=== PATIENT | female | born 1990 | race Caucasian/White ===

== ENCOUNTER 2022-05-15 10:27 | Emergency (ER) | payer BC, SELFPAY ==
--- NOTE | 2022-05-15 10:31 | ED.URI ---
HPI - URI/Sore Throat General Chief Complaint: Upper Respiratory Infection Stated Complaint: Poss Strep Throat Time Seen by Provider: 05/15/22 10:36 Source: patient, RN notes reviewed and old records reviewed Mode of arrival: ambulatory Limitations: no limitations History of Present Illness HPI Narrative: 32-year-old female presents to the [facility] with complaints a sore throat that feels swollen since Sunday, 2 days. Has taken cold and flu medicine as well as ibuprofen. Patient unsure of fevers, does not own a thermometer Denies any congestion, ear pain, coughing, chest pain or pain Onset (ago): day(s) (2) Related Data Home Medications Medication Instructions Recorded Confirmed famotidine 20 mg tablet 20 mg PO DAILY 02/02/20 05/15/22 fluoxetine 20 mg capsule 20 mg PO DAILY 02/02/20 05/15/22 Allergies Allergy/AdvReac Type Severity Reaction Status Date / Time hydrocodone AdvReac Unknown Vomiting Unverified 05/15/22 10:40 Review of Systems Review of Systems: All systems reviewed & are unremarkable except as noted in HPI and below Constitutional: Constitutional: Reports no additional constitutional complaints Eyes: Eyes: Reports no additional eye complaints ENT: Reports as per HPI and Reports sore throat Cardiovascular: Cardiovascular: Reports no additional cardiovascular complaints, Denies chest pain and Denies dyspnea Respiratory: Respiratory: Reports no additional respiratory complaints, Denies chest congestion, Denies cough and Denies dyspnea Gastrointestinal: Gastrointestinal: Reports no additional gastrointestinal complaints, Denies abdominal pain, Denies nausea and Denies vomiting Musculoskeletal: Musculoskeletal: Reports no additional musculoskeletal complaints Integumentary/Breasts: Skin/Breast: Reports system reviewed and no additional complaints, except as docu Neurologic: Reports system reviewed and no additional complaints, except as documented Psychiatric: Psychiatric: Reports no additional psychiatric complaints Allergic/Immunologic: Allergic/Immunologic: Reports no additional allergic/immunologic complaints PMFSH Past Medical History Medical History Acid reflux Anxiety Surgical History Surgical History History of back surgery History of bilateral breast reduction surgery History of delivery History of cholecystectomy Family History Family History Other Hypertension Social History Social History Smoking status: Never smoker Alcohol intake: current Comments At the time of my signature, I reviewed and agree with the nursing past medical, surgical, social, and family history. There is no relevant family history pertinent to the patient complaint. Exam Const: General: cooperative, healthy appearing, comfortable, no acute distress, well developed, alert and well nourished Nutritional Appearance: well nourished Orientation/consciousness: patient oriented x3 Limitations: no limitations HENMT: Head: normal to inspection Ears: hearing grossly normal bilaterally, external ears normal, TM's normal bilaterally and EAC's normal Face/Nose/Sinus: Normal external nose present, Normal nares present, Normal nasal mucous membranes and turbinates present and normal facial exam Face and sinus: normal facial exam Mouth: Yes Normal oral and palatal mucosa present, Yes lip normal and Yes moist mucous membranes Throat: posterior oropharynx normal and uvula midline Eyes: General: appearance normal, both eyes and all related structures Alignment and Position: alignment normal Periorbital: periorbital findings normal Conjunctivae: conjunctivae normal Pupils: Equal, round and reactive pupils present EOM: EOMs intact bilaterally Neck: Neck: normal visual inspection, f
[2022-05-15 10:34] VITALS: BP 126/85; PULSE 88; RESP 16; TEMP 36.4; O2SAT 99
== END 2022-05-15 10:56 | disposition home or self-care (01) ==
PROVIDERS: Emergency Provider Nurse Practitioner; PCP Registered Nurse
DX: J02.0 Streptococcal pharyngitis (principal); K21.9 Gastro-esophageal reflux disease without esophagitis; F41.9 Anxiety disorder, unspecified
CPT/HCPCS: 87880; 99213; G0463

== ENCOUNTER 2022-12-07 09:06 | Emergency (ER) | payer BC, SELFPAY ==
--- NOTE | 2022-12-07 09:11 | ED.URI ---
HPI - URI/Sore Throat General Chief Complaint: Upper Respiratory Infection Stated Complaint: Sore Throat Time Seen by Provider: 12/07/22 09:29 Source: patient Mode of arrival: ambulatory Limitations: no limitations History of Present Illness HPI Narrative: Patient is a 32-year-old female who presents with sore throat since yesterday. Patient states her sore throat has not improved. Was at a concert on Sunday and thought it was just due to screaming. Daughter tested positive for strep throat today. Denies any fever, chills, nausea, vomiting, diarrhea, congestion, ear pain, headache. Has not taken anything for symptoms Related Data Home Medications Medication Instructions Recorded Confirmed fluoxetine 20 mg capsule 20 mg PO DAILY 02/02/20 12/07/22 omeprazole 20 mg capsule,delayed 20 mg DIRECTED 12/07/22 12/07/22 release Allergies Allergy/AdvReac Type Severity Reaction Status Date / Time hydrocodone AdvReac Unknown Vomiting Unverified 05/15/22 10:40 Review of Systems Review of Systems: All systems reviewed & are unremarkable except as noted in HPI and below Constitutional: Constitutional: Denies body ache(s), Denies fever(s), Denies headache(s), Denies malaise and Denies weakness Eyes: Eyes: Denies loss of vision ENT: Denies otalgia, Denies headache(s), Denies nasal congestion, Denies sinus pain and Reports sore throat Cardiovascular: Cardiovascular: Denies chest pain, Denies irregular heart rhythm and Denies dyspnea Respiratory: Respiratory: Denies cough and Denies dyspnea Gastrointestinal: Gastrointestinal: Denies abdominal pain, Denies melena, Denies hematochezia, Denies diarrhea, Denies nausea and Denies vomiting Musculoskeletal: Musculoskeletal: Denies back pain, Denies myalgias and Denies arthralgias Integumentary/Breasts: Skin/Breast: Denies pruritus and Denies rash Neurologic: Denies headache(s), Denies loss of vision and Denies weakness Psychiatric: Psychiatric: Reports no additional psychiatric complaints PMFSH Past Medical History Medical History Acid reflux Anxiety Surgical History Surgical History History of back surgery History of bilateral breast reduction surgery History of delivery History of cholecystectomy Family History Family History Other Hypertension Social History Social History Smoking status: Never smoker Alcohol intake: current Comments At time of signature, agree with nursing past medical, surgical, social and family history. There is no relevant family history pertinent to the presenting complaint. Exam Const: General: cooperative, healthy appearing, comfortable, no acute distress and well nourished Nutritional Appearance: well nourished Orientation/consciousness: patient oriented x3 Limitations: no limitations HENMT: Head: normal to inspection, normocephalic and atraumatic Ears: hearing grossly normal bilaterally, external ears normal, TM's normal bilaterally and EAC's normal Face/Nose/Sinus: Normal external nose present, Normal nares present, Normal nasal mucous membranes and turbinates present, Normal septum present, normal facial exam, sinuses nontender and face symmetric Face and sinus: normal facial exam, sinuses nontender and face symmetric Mouth: Yes Normal oral and palatal mucosa present, Yes lip normal and Yes moist mucous membranes Teeth and gingiva: dentition normal Throat: uvula midline, abnormal tonsil bilateral erythema, posterior oropharynx abnormal edema, erythema and exudates and postnasal drainage Eyes: General: appearance normal, both eyes and all related structures Alignment and Position: alignment normal and position normal Periorbital: periorbital findings normal Eyelids: eyelids normal Pupils: Equal,
[2022-12-07 09:25] VITALS: BP 128/87; PULSE 66; RESP 16; TEMP 36.9; O2SAT 100
== END 2022-12-07 09:54 | disposition home or self-care (01) ==
PROVIDERS: Emergency Provider Nurse Practitioner Family; PCP Registered Nurse
DX: J02.9 Acute pharyngitis, unspecified (principal); K21.9 Gastro-esophageal reflux disease without esophagitis; F41.9 Anxiety disorder, unspecified
CPT/HCPCS: 87081; 87880; 99213; G0463

== ENCOUNTER 2023-05-09 13:36 | Emergency (ER) | payer BC, SELFPAY ==
[2023-05-09] VITALS (32 sets, daily range): BP systolic 114–179; BP diastolic 77–108; PULSE 78–106; RESP 14–22; TEMP 37.2; O2SAT 95–100
--- NOTE | ~2023-05-09 | CT_ITS ---
EXAMINATION: CT abdomen pelvis wo con DATE: 05/09/2023 20:19 INDICATION: Left flank pain. TECHNIQUE: Computed tomography (CT) of the abdomen and pelvis was performed without intravenous contr ast. Automated exposure control and iterative reconstruction technique were employed. The dose-length product was 371.26 mGy-cm. COMPARISON: CT abdomen and pelvis 02/24/2012 FINDINGS: The visualized portions of the lung bases are clear without pneumonia or pleural effusion. The heart size is normal. No pericardial effusion. The liver is normal. There are changes of cholecys tectomy. The spleen, pancreas, adrenal glands, and kidneys are normal. There are no dilated loops of bowel. The appendix is normal. There are no pathologically enlarged lymph nodes. There is no free int raperitoneal fluid. There is severe lumbar spondylosis. IMPRESSION: 1. No urolithiasis. Reviewed, dictated and finalized at location [facility] IMPRESSION: 1. No urolithiasis.
[2023-05-09 17:22] LABS: Basophils Percent Auto 0.2 % (0.2-1.2); Eosinophils Percent Auto 0.2 % (0-4.4); Hematocrit 43.7 % (37.0-47.0); Hemoglobin 14.4 g/dL (12.0-15.0); Immature Granulocyte Absolute 0.02 K/mm3 (0.00-0.031); Immature Granulocyte Percent A 0.2 % (0-0.5); Lymphocytes Absolute Auto 2.05 K/mm3 (0.9-3.2); Lymphocytes Percent Auto 23.2 % (18.3-44.2); Mean Corpuscular Hemoglobin 32.4 pg (26-34); Mean Corpuscular Volume 98.2 fl (80-100); Mean Platelet Volume 10.9 fl (7.4-10.4); Monocytes Absolute Auto 0.5 K/mm3 (0.1-0.6); Monocytes Percent Auto 5.1 % (2.6-8.5); Neutrophils Absolute Auto 6.3 K/mm3 (1.3-6.7); Neutrophils Percent Auto 71.1 % (45.5-73.1); Platelet Count Result 267 k/mm3 (150-375); Red Blood Count 4.45 M/mm3 (4.2-5.4); Red Cell Distribution Width 12.3 % (11.5-14.5); White Blood Count 8.9 K/mm3 (4.5-10.0)
[2023-05-09 17:24] LABS: Appearance Urine Clear (Clear); Bilirubin Urine Negative (Negative); Blood Urine Negative (Negative); Color Urine Yellow (Yellow); Glucose Urine UA Negative (Negative); Ketones Urine 2+ mg/dL (Negative); Leukocyte Esterase Ur Negative LEU/UL (Negative); Nitrate Urine Negative (Negative); Protein Urine Negative (Negative); Specific Grav Ur 1.005 (1.001-1.035); Urobilinogen Urine 0.2 mg/dL (<2.0); pH Urine 6.5 (5.0-9.0)
--- NOTE | 2023-05-09 17:24 | ED.ABDPAIN ---
HPI - Abdominal Pain General Chief Complaint: Abdominal Pain Stated Complaint: left flank pain, vomiting Time Seen by Provider: 05/09/23 16:57 Source: patient Mode of arrival: ambulatory Limitations: no limitations History of Present Illness HPI narrative: Patient presents with abdominal pain. Initial triage complaint is left flank pain but she denies this. She states the pain is at the epigastrium and radiates into her left upper quadrant. It is associated with nausea as well as 2 days of nonbloody emesis nonbilious diarrhea. She has had numerous episodes of both. She states this occurs nearly monthly, often surrounding time of her menses. Last menstrual period started 2 days ago, normal flow. This happened last month while she was in [place]. She did previously have these episodes which were attributed to gallbladder issues but she has a history of cholecystectomy. She previously had an EGD performed while she was in high school through [facility] but has not seen a GI specialist in adulthood. She does have a history of GERD notes that she experiences any increase in belching. She does use marijuana frequently, nearly daily. Symptoms are worse with food or water. No fevers. No sick contacts. She states it feels like bad gas. Related Data Home Medications Medication Instructions Recorded Confirmed fluoxetine 20 mg capsule 20 mg PO DAILY 02/02/20 12/07/22 omeprazole 20 mg capsule,delayed 20 mg DIRECTED 12/07/22 12/07/22 release Allergies Allergy/AdvReac Type Severity Reaction Status Date / Time hydrocodone AdvReac Unknown Vomiting Verified 05/09/23 17:50 [facility] Past Medical History Medical History Acid reflux Anxiety Surgical History Surgical History History of back surgery History of bilateral breast reduction surgery History of delivery History of cholecystectomy Family History Family History Other Hypertension Social History Social History Smoking status: Never smoker Alcohol intake: current Substance use type: marijuana Current Housing: I Have Housing Living arrangements: with family Additional living arrangements comments: and children Exam Narrative: GENERAL: Well-appearing, well-nourished, and in no acute distress. HEAD: Normocephalic, atraumatic. EYES: Non injected, non icteric ENT: Nares clear, no rhinorrhea or epistaxis. NECK: Supple. CHEST: Speaking in complete sentences. No respiratory distress. HEART: Regular rate and rhythm. . ABDOMEN: Soft, nondistended. No tenderness to palpation. No rigidity or guarding. EXTREMITIES: Normal range of motion. No edema. SKIN: Warm, dry, no rash. NEURO: No focal deficits. Alert and oriented x3. PSYCH: Normal mood and affect. Course Vital Signs Vital signs: Vital Signs Temperature 98.9 F 05/09/23 13:51 Pulse Rate 94 05/09/23 13:51 Respiratory Rate 19 05/09/23 13:51 Blood Pressure 127/83 05/09/23 13:51 Pulse Oximetry 99 05/09/23 13:51 Temperature 98.9 F 05/09/23 13:51 Pulse Rate 99 05/09/23 22:31 Respiratory Rate 14 05/09/23 22:31 Blood Pressure 133/87 05/09/23 22:31 Pulse Oximetry 98 05/09/23 22:31 MDM - Abdominal Pain MDM Narrative Medical decision making narrative: Patient presents with epigastric/LUQ abdominal pain as well as nausea/vomiting/diarrhea. VS WNL. Physical exam is reassuring, particularly abdominal exam. Patient has an unremarkable workup as labs are without any abnormalities. However, upon reassessment she is tearful, moaning in pain, and appears uncomfortable. She is hyperventilating experiencing. Oral paresthesias he cramping pains in legs. I discussed coached breathing so as to help
[2023-05-09 17:27] LABS: Add Urine Microscopic? NO
[2023-05-09 17:31] LABS: Alanine Aminotransferase 24 U/L (6-35); Albumin Level 4.7 g/dL (3.5-5.1); Alkaline Phosphatase 77 U/L (38-126); Anion Gap 11 mmol/L (8-16); Aspartate Amino Transferase 24 U/L (14-36); Bilirubin,Total 0.9 mg/dL (0.2-1.3); Blood Urea Nitrogen 5 mg/dL (7-17); Calcium 9.5 mg/dL (8.4-10.2); Carbon Dioxide 27 mmol/L (22-30); Chloride 103 mmol/L (98-107); Estimated CRCL calculation 102 ml/min; Estimated Glomerular Filt Rate > 60; Glucose 95 mg/dL (65-110); Lipase 54 U/L (23-300); Potassium 3.7 mmol/L (3.4-5.0); Sodium 141 mmol/L (137-145)
[2023-05-09] MEDS: SODIUM CHLORIDE 0.9% IV 1,000 ML 999 ML IV CONT (17:50)
[2023-05-09] MEDS: ONDANSETRON INJ 4 MG/2 ML VIAL IV PUSH (17:51)
[2023-05-09 17:53] LABS: Magnesium 2.3 mg/dL (1.6-2.3)
[2023-05-09 18:25] LABS: Influenza A QL RT-PCR Negative (Negative); Influenza B QL RT-PCR Negative (Negative); RSV RNA, RT-PCR Negative (Negative); SARS-CoV-2 RNA PCR Negative (Negative)
--- NOTE | 2023-05-09 19:43 | PC.NURSE ---
Assumed care of pt. Pt tearful in room, stating that all her muscles are cramping up. Educated pt that was likely due to her resp rate and how to take deep breaths. Verbalized understanding. Dr Plaza updated on pt's request for percocet.
[2023-05-09] MEDS: oxyCODONE/ACETAMINOPHEN (*CRX) 5-325 MG TABLET 1 TABLET PO (19:48)
[2023-05-09] MEDS: diphenhydrAMINE HCl INJ 50 MG/ML VIAL 25 MG IV PUSH ×2 (20:57→21:34)
[2023-05-09] MEDS: HALOPERIDOL LACTATE 5 MG/ML VIAL 2.5 MG IV PUSH ×2 (20:58→21:35)
[2023-05-09] MEDS: PANTOPRAZOLE SODIUM IV 40 MG VIAL IV PUSH (22:30)
[2023-05-09] MEDS: DICYCLOMINE HCL INJ 20 MG/2 ML VIAL IM (22:30)
== END 2023-05-09 22:42 | disposition home or self-care (01) ==
PROVIDERS: Emergency Provider Student in an Organized Health Care Education/Training Program; PCP Registered Nurse
DX: R10.13 Epigastric pain (principal); Z20.822 Contact with and (suspected) exposure to COVID-19
CPT/HCPCS: 36415; 74176; 80053; 81003; 81025; 83690; 83735; 85025; 87637; 96361; 96372; 96374; 96375; 96376; 99284; A9270; C9113; J0500; J1200; J1630; J2405; J7030

== ENCOUNTER 2023-11-29 01:47 | Day surgery (SDC) | payer BC, SELFPAY ==
[2023-11-23 10:41] VITALS: BMI 25.6
--- NOTE | 2023-11-23 10:48 | PC.NURSE ---
Report to the Outpatient Waiting Room, entrance under the green pavilion located off [facility], at time _0900_ on date _[id number]_. Planned Procedure Time: _1100_. Time changes happen often and if your time is changed the preop area will call you the afternoon before. - You and your visitor will be asked to self-screen and do not enter if you have any COVID symptoms. - A mask is optional within the hospital at this time. Patients may have clear liquids (water, carbonated beverages, clear teas, apple juice) until 3 hours prior to surgery with a maximum of 20 ounces. - No food from midnight until time of surgery Take the following medications with a SIP of water the morning of surgery: ___Fluoxetine DO NOT STOP ANY OF YOUR OTHER PRESCRIPTION MEDICATIONS PRIOR TO SURGERY ?EXCEPT THE FOLLOWING Medications to discontinue per physician None Date to take last dose Please no make-up, nail cape verdean, hairspray, perfume, deodorant, or body powder the day of surgery. No jewelry (including any body piercings) or valuables the day of surgery, leave them at home. Please take a shower or bath the night before, or the morning of, surgery with an antibacterial soap. Wear comfortable, loose fitting clothing. - Jewelry must be removed prior to entering the operating room. Rings and piercings that are not removed may be cut off. - The hospital will not accept responsibility for valuables. - Please leave all valuables, including medications, at home the day of surgery. If you are going home after surgery, a licensed fuel oil truck driver must drive you home. - NO public transportation without another adult if you receive anesthesia. - We recommend that an adult stay with you for 24 hours following discharge. - We also recommend that you do not drive, make important decision, drink alcoholic beverages, or take any drugs that were not prescribed by your health care provider for at least 24 hours after your discharge time. Follow any additional instructions given to you from your surgeon. If you or anyone in your household have experienced Covid symptoms in the past week, please notify your surgeon or the nurse liaison at the phone number below for possible testing. Telephone instructions given to __Maribel___and asked if any additional questions and then verbalized understanding. Patient advised to call surgeon office or pre surgery nurse liaison [phone] if any additional questions.
--- NOTE | 2023-11-29 09:49 | PM.IMHP ---
H&P: HPI History of Present Illness Date/Time: 11/29/23 09:49 Chief Complaint: Heavy periods Narrative: 33 y/o with heavy, painful menses. Her had a vasectomy. She is interested in surgical management of her problem. Review of Systems Review of Systems: All systems reviewed & are unremarkable except as noted in HPI and below PMFSH Past Medical History Medical History Acid reflux Anxiety Surgical History Surgical History History of back surgery History of bilateral breast reduction surgery History of delivery History of cholecystectomy Family History Family History Other Hypertension Social History Social History Smoking status: Never smoker Alcohol intake: current Drinks per week: 3 Substance use type: marijuana Other substance usage details: Daily Current Housing: I Have Housing Living arrangements: with family Additional living arrangements comments: and children Spiritual care concerns: No Meds Home Medications and Allergies Home Medications Medication Instructions Recorded Confirmed Type fluoxetine 20 mg capsule 20 mg PO DAILY 02/02/20 11/23/23 History Allergies Allergy/AdvReac Type Severity Reaction Status Date / Time hydrocodone AdvReac Unknown Vomiting Verified 11/23/23 10:40 Exam Const: Orientation/consciousness: patient oriented x3 Other: Well-developed, well-nourished female in no acute distress. Neck: Thyroid: thyroid normal Lymphatic: no lymphadenopathy noted (in neck, axilla or inguinal nodes) Resp: Effort & Inspection: normal respiratory effort Auscultation: clear to auscultation bilaterally Cardio: Rate: regular rate Rhythm: regular rhythm Heart sounds: S1 normal heart sound present and S2 normal heart sound present GI: Other: ABD: Soft, nontender, nondistended. No guarding or rebound tenderness. No hepatosplenomegaly. : General: Yes no CVA tenderness Other: External genitalia: normal female hair distribution, without lesion. Urethral meatus: no lesion, non prolapsed. Bladder: no mass, nontender Vagina: well-estrogenized, without lesion or discharge. No cystocele or rectocele. Cervix: no lesion or discharge. Uterus: small, anteverted, freely mobile, nontender Adnexa: no mass or tenderness. Anus/perineum: no lesions, nontender Back/Spine/Pelvis: Back: no CVA tenderness Skin: General skin exam: normal color and no rashes or lesions noted Neuro: General: patient oriented x3 Extrem: Other: Extremities: nontender with no edema Psych: Mental Status: mental status grossly normal Affect: normal affect Assessment and Plan Assessment and plan (1) Menorrhagia: Code(s): N92.0 - Excessive and frequent menstruation with regular cycle Status: Acute Assessment and Plan: A: Menorrhagia with dysmenorrhea. P: We reviewed medical as well a surgical management, and she prefers the latter. Specifically, I offered her hysteroscopy with dilation and sharp curettage and endometrial ablation. She understands risks of surgery to include risks of anesthesia, risks of pain, infection, bleeding, blood products, thromboembolic phenomena and damage to adjacent structures such as bowel, bladder, ureters, blood vessels and nerves. She understands that endometrial ablation is insufficient for contraception. She understands all these risks and elects to proceed with surgery. (2) Dysmenorrhea: Code(s): N94.6 - Dysmenorrhea, unspecified Status: Acute
[2023-11-29 10:00] VITALS: BP 106/63; PULSE 75; RESP 16; TEMP 36.7; O2SAT 99
--- NOTE | 2023-11-29 10:00 | WPDANESEPPF ---
Anes - Initial Pre Proc Eval Procedure: Operation Date: 11/29/23 11:00 Proposed Procedures p Hysteroscopy Dilation and Curettage with Paulina Endometrial Ablation - Fortino Mills MD Date/Time: 11/29/23 10:00 Surgeon: Fortino Mills MD Pre Op Diagnosis: Menorrrhagia, Dysmenorrhea Patient Data Age: 33 Gender: F Height: 1.57 m Weight: 63.6 kg Allergies Allergy/AdvReac Type Severity Reaction Status Date / Time hydrocodone AdvReac Unknown Vomiting Verified 11/23/23 10:40 Home Medications Medication Instructions Recorded Confirmed Type fluoxetine 20 mg capsule 20 mg PO DAILY 02/02/20 11/23/23 History Patient hx anesthesia problems: none Family hx anesthesia problems: none Results Review: All pre-operative results and documents have been reviewed as part of the pre-operative evaluation. [facility] Past Medical History Medical History Acid reflux Anxiety Surgical History Surgical History History of back surgery History of bilateral breast reduction surgery History of delivery History of cholecystectomy Family History Family History Other Hypertension Social History Social History Smoking status: Never smoker Alcohol intake: current Drinks per week: 3 Substance use type: marijuana Other substance usage details: Daily Current Housing: I Have Housing Living arrangements: with family Additional living arrangements comments: and children Spiritual care concerns: No Anes - Eval Final PreProcedure Day of Procedure 11/29/23 10:00 Patient weight: normal Heart: regular rate and rhythm Lungs: clear to auscultation Airway: Mallampati scale class II Neurological: alert and oriented Last oral intake: >/= 8 hours ASA classification: I Emergent: no Anesthetic plan: proceed Anesthesia type and monitoring: general GIVS and standard monitoring Results Review: All pre-operative results and documents have been reviewed as part of the pre-operative evaluation. Informed Consent: The patient's anesthetic plan and its attendant risks and benefits were discussed with the patient/family/POA. Questions were solicited and answers provided to the satisfaction of the patient/family/POA.
[2023-11-29] MEDS: LACTATED RINGERS 1,000 ML 30 ML IV CONT (11:03)
[2023-11-29] MEDS: ONDANSETRON INJ 4 MG/2 ML VIAL IV PUSH ×2 (11:03→13:44)
[2023-11-29] MEDS: ACETAMINOPHEN 500 MG TABLET 1000 MG PO (11:03)
[2023-11-29] MEDS: KETOROLAC 15 MG/ML VIAL (*BKC) IV PUSH (11:12)
--- NOTE | 2023-11-29 11:12 | WPDHPUPDATE1 ---
History and Physical Update Update Date/Time: 11/29/23 11:12 History and Physical has been reviewed, including an updated exam of the patient. There are NO changes in the patient's condition. Risks, benefits, and alternatives have been discussed and questions answered. Patient agrees to proceed with procedure.
[2023-11-29 11:19] LABS: BEDSIDEPREGUCG Negative
[2023-11-29] MEDS: LIDOCAINE HCL 1% LOCAL INJ 10 ML VIAL INFILTRATE (12:13)
[2023-11-29 12:28] VITALS: BP 112/70; PULSE 69; RESP 16; O2SAT 97
--- NOTE | 2023-11-29 12:32 | P.OP_ITS ---
Procedure Note - Detailed Date of Procedure 11/29/23 Pre-op Diagnosis Menorrhagia Dysmenorrhea Post-op Diagnosis Same Procedure Performed Hysteroscopy Dilation and sharp curettage Endometrial ablation Surgeon Fortino Mills MD Anesthesia MAC and Local (1% lidocaine) Findings Normal-appearing endometrial cavity. Both tubal ostia seen. Description of Procedure The patient was taken to the operating room where she was prepared and draped in the usual sterile fashion in the dorsal lithotomy position. The bladder was drained with a red rubber catheter. A sterile speculum was placed into the vagina. The anterior lip of the cervix was grasped with single-tooth tenaculum. Ten mL of 1% lidocaine was administered in a paracervical block. The cervix was then gently dilated using Hegar dilators until a 7 mm dilator could be passed. Hysteroscopy was performed using sterile saline as a distention medium. Findings are as noted above. Sharp curettage was then performed, and endometrial curettings were collected on a Telfa pad and passed off to be sent t o pathology. Finally, the the Paulina device was advanced and endometrial ablation commenced without difficulty. The device was withdrawn and a second look was taken using the hysteroscope. Excellent coverage of the endometrial cavity was noted. The tenaculum was removed. Hemostasis was excellent. Sponge, lap, needle and instrument counts were correct. The patient was awakened and taken to the recovery room in stable condition. I was present and scrubbed through the entire procedure. Implants None Estimated Blood Loss 5 Drains No Packing No Pathology Yes (Endometrial curettings) Complications None Condition Stable Disposition PACU
[2023-11-29] MEDS: fentaNYL CITRATE INJ (*CRX) 100 MCG/2 ML VIAL 25 MCG IV PUSH ×8 (12:37→14:07)
[2023-11-29 12:50] VITALS: BP 131/79; PULSE 57; RESP 16; O2SAT 99
[2023-11-29 13:15] VITALS: BP 152/88; BP 156/87; PULSE 48; PULSE 54; RESP 16; RESP 18; O2SAT 100
[2023-11-29] MEDS: oxyCODONE HCL (*CRX) 5 MG TAB IR PO (13:25)
[2023-11-29 13:45] VITALS: BP 159/97; PULSE 54; RESP 20
== END 2023-11-29 14:30 | disposition home or self-care (01) ==
PROVIDERS: PCP Registered Nurse; Visit Provider Obstetrics & Gynecology
PROC: 0U5B8ZZ Destruction of Endometrium, Via Natural or Artificial Opening Endoscopic (ICD-10-PCS; CPT 58563; principal; 2023-11-29 11:00)
DX: N92.0 Excessive and frequent menstruation with regular cycle (principal); N94.6 Dysmenorrhea, unspecified; F41.9 Anxiety disorder, unspecified; K21.9 Gastro-esophageal reflux disease without esophagitis; F12.90 Cannabis use, unspecified, uncomplicated; Z98.890 Other specified postprocedural states; Z98.1 Arthrodesis status; Z90.49 Acquired absence of other specified parts of digestive tract
CPT/HCPCS: 58563; 88305; A9270; J1885; J2250; J2405; J2704; J3010; J7120

== ENCOUNTER 2024-06-27 16:21 | Emergency (ER) | payer BC, SELFPAY ==
--- OUTSIDE RECORDS SUMMARY | 2024-06-27 16:23 | XMS_ITS | Referral Summary ---
Author Organization [facility] Address [address] [place] [address] Care Team Providers Care Environmental Services Aide Name Role Phone Cesar Laws MD Primary Care Provide r Kiran Flowers RN Unavailable [phone] Source Comments [facility],non-owned Affiliates and Associated Physician Practices is amultiple site organization consisting of ambulatory clinics and hospital sitesin [place], [place], [place] and [place]. This disclosure is being madepursuant to the Care Everywhere program and may not contain all information available regarding this patient. Last updated 18.[email or web address] Allergies No known active allergies Medications * Be aware that medications may not be up to date on this document. Alwaysverify current medications with the patient. Medication Sig Dispensed Refills Start Date End Date Status diphenhydrAMINE (BENADRYL) 25 MG tablet Take by mouth nightly as needed for Itching Active diazepam (VALIUM) 2 MG tabletIndications:Musc le Spasm Take 1 Tab by mouth 3 times daily as needed Reasons: Muscle Spasm 60 Tab 3 05/26/2015 Active piroxicam (FELDENE) 10 MG capsule Take 1 Cap by mouth 2 times daily 60 Cap 1 06/16/2015 Active Immunizations Name Administration Dates Next Due TDAP (7yrs+) 07/15/2013 Social History Tobacco Use Types Packs/Day Years Used Date Smoking Tobacco: Never Smokeless Tobacco: Never Alcohol Use Standard Drinks/Week Comments Yes 0 (1 standard drink = 0.6 oz pur e alcohol) Sex and Gender Information Value Date Recorded Sex Assigned at Not on file Gender Identity Not on file Sexual Orientation Not on file Last Filed Vital Signs Vital Sign Reading Time Taken Comments Blood Pressure 113/86 05/12/2023 12:15 PM RESIDENTIAL SOLAR SALES CONSULTANT Pulse 100 05/12/2023 7:48 AM RESIDENTIAL SOLAR SALES CONSULTANT Temperature 36.7 C (98 F) 05/12/2023 12:15 PM RESIDENTIAL SOLAR SALES CONSULTANT Respiratory Rate 16 05/12/2023 12:15 PM RESIDENTIAL SOLAR SALES CONSULTANT Oxygen Saturation 99% 05/12/2023 12:15 PM RESIDENTIAL SOLAR SALES CONSULTANT Inhaled Oxygen Concentration - - Weight 66.7 kg (147 lb) 05/12/2023 7:48 AM RESIDENTIAL SOLAR SALES CONSULTANT Height 157.5 cm (5' 2 ) 05/12/2023 7:48 AM RESIDENTIAL SOLAR SALES CONSULTANT Body Mass Index 26.89 05/12/2023 7:48 AM RESIDENTIAL SOLAR SALES CONSULTANT Functional Status Functional Status Response Date of Assess ment Is person deaf or have serious hearing difficult y? No 05/04/2015 Is person blind or have serious difficulty seein g? No 05/04/2015 Does person have serious dif ficulty walking/climbing stairs? No 05/04/2015 Does person have difficulty dressing/bathing? No 05/04/2015 Does person have difficulty doing errands alone? No 05/04/2015 Cognitive Status Response Date of Assessm ent Does person have difficulty concentrating/remembering/making decisions? No 05/04/2015 Plan of Treatment Not on file Medical Devices Implanted Type Area Solder Deposit Operator Device Identifier Shelf Expiration Date Model / Serial / Lot Wax Bone Implanted:Qty: 1 on 05/04/2015 by Jr Smith MD at [facility] Right: Spine Lumbar [employer] 07/16/2019 [id number] / / [id number] Advance Directives * Full Code (Latest Code Status on File) Date Activated Date Inactivated Comments 05/04/2015 3:51 PM 05/05/2015 1:50 PM * Full Code Date Activated Date Inactivated Comments 07/14/2013 9:17 AM 07/18/2013 5:15 PM * Full Code Date Activated Date Inactivated Comments 07/13/2013 4:03 PM 07/14/2013 9:17 AM Care Teams Environmental Services Aide Relationship Specialty Start Date End Date Cesar Laws MD PCP - General Family Medicine 04/16/15 Kiran Flowers, RN Insulation Cutter 05/05/15
--- OUTSIDE RECORDS SUMMARY | 2024-06-27 16:23 | XMS_ITS | Encounter Summary ---
Author Organization [facility] Address [address] [place] [id number] Care Team Providers Care Cloth Finishing Range Operator Chief Name Role Phone Christie Moulton Primary Care Provider [phone] Encounter Details Date Type Department Care Team (Latest Contact Info) Description 02/19/2018 Abstract [facility] , Gladis Bravo MD Social History Tobacco Use Types Packs/Day Years Used Date Smoking Tobacco: Never Assessed Comments Unknown Sex and Gender Information Value Date Recorded Sex Assigned at Not on file Legal Sex Female 7:35 PM CDT Gender Identity Not on file Sexual Orientation Not on file documented as of this encounter Plan of Treatment Not on file documented as of this encounter Visit Diagnoses Not on filedocumented in this encounter Care Teams Cloth Finishing Range Operator Chief Relationship Specialty Start Date End Date Christie Moulton APNP [address] [place] [id number] PCP - General NURSE PRACTITIONER 01/28/18 documented as of this encounter
--- OUTSIDE RECORDS SUMMARY | 2024-06-27 16:23 | XMS_ITS | Patient Health Summary ---
Author Organization [facility] Address [address] [place] [address] Care Team Providers Care Metallurgy Teacher Name Role Phone Cesar Laws MD Primary Care Provide r Kiran Flowers RN Unavailable [phone] Note from Formerly named [facility],non-owned Affiliates and Associated Physician Practices is amultiple site organization consisting of ambulatory clinics and hospital sitesin [place], [place], [place] and [place]. This disclosure is being madepursuant to the Care Everywhere program and may not contain all information available regarding this patient. Last updated 18.[facility] Allergies No known active allergies Medications * Be aware that medications may not be up to date on this document. Alwaysverify current medications with the patient. * diphenhydrAMINE (BENADRYL) 25 MG tablet Take by mouth nightly as needed for Itching * diazepam (VALIUM) 2 MG tablet(Started 05/26/2015) Take 1 Tab by mouth 3 times daily as needed Reasons: Muscle Spasm 3 refills left * piroxicam (FELDENE) 10 MG capsule(Started 06/16/2015) Take 1 Cap by mouth 2 times daily 1 refill left Immunizations * TDAP (7yrs+)(Given 07/15/2013) Social History Tobacco Use Types Packs/Day Years [...] Comments Blood Pressure 113/86 05/12/2023 12:15 PM FLOOD CONTROL ENGINEER Pulse 100 05/12/2023 7:48 AM FLOOD CONTROL ENGINEER Temperature 36.7 C (98 F) 05/12/2023 12:15 PM FLOOD CONTROL ENGINEER Respiratory Rate 16 05/12/2023 12:15 PM FLOOD CONTROL ENGINEER Oxygen Saturation 99% 05/12/2023 12:15 PM FLOOD CONTROL ENGINEER Inhaled Oxygen Concentration - - Weight 66.7 kg (147 lb) 05/12/2023 7:48 AM FLOOD CONTROL ENGINEER Height 157.5 cm (5' 2 ) 05/12/2023 7:48 AM FLOOD CONTROL ENGINEER Body Mass Index 26.89 05/12/2023 7:48 AM FLOOD CONTROL ENGINEER Medical Devices Implanted Type Area Flexographic Printing Machinist Device Identifier Shelf Expiration Date Model / Serial / Lot Wax Bone Implanted:Qty: 1 on 05/04/2015 by Jr Smith MD at [facility] Right: Spine Lumbar [employer] 07/16/2019 [id number] / / [id number] Procedures * PTT [facility](Performed 05/12/2023) * PT-INR [facility](Performed 05/12/2023) * XR ABD OBSTR SERIES W CHEST 1VW(Performed 05/12/2023) Performed for Abdominal pain, generalized * URINALYSIS REFLEX MICROSCOPIC REFLEX CULTURE(Performed 05/12/2023) * HCG BETA BLOOD QUANTITATIVE(Performed 05/12/2023) * LIPASE BLOOD(Performed 05/12/2023) * COMPREHENSIVE METABOLIC PANEL(Performed 05/12/2023) * CBC W AUTO DIFFERENTIAL(Performed 05/12/2023) * CARDIAC RHYTHM STRIP ORDER(Performed 2015) * XR SPINE 1 VIEW(Performed 05/04/2015) Performed for Back pain, unspecified back pain laterality, unspecified location * DISCECTOMY LUMBAR 1-2 LEVELS(Performed 05/04/2015) Performed for Herniated nucleus pulposus, lumbar * HCG URINE QUALITATIVE - POINT OF CARE(Performed 05/04/2015) * RAD OUTSIDE IMG IMPORT(Performed 04/29/2015) Performed for Pain * IMAGING/RADIOLOGY/XRAY RESULTS ORDER(Performed 04/11/2014) * LAB RESULTS ORDER(Performed 07/19/2013) * COMPREHENSIVE METABOLIC PANEL(Performed 07/17/2013) * CBC W AUTO DIFFERENTIAL(Performed 07/17/2013) * CBC W AUTO DIFFERENTIAL(Performed 07/15/2013) * COMPREHENSIVE METABOLIC PANEL(Performed 07/14/2013) * CBC W AUTO DIFFERENTIAL(Performed 07/14/2013) * BLOOD GASES CORD ARACELI (ISTAT)(Performed 07/14/2013) * BLOOD GASES CORD ART (ISTAT)(Performed 07/14/2013) * PATHOLOGY TISSUE EXAM (STL)(Performed 07/14/2013) Performed for HELLP (hemolytic anemia/elev liver enzymes/low platelets in ) ([facility]) * PREPARE PLATELET PHERESIS UNIT(S)(Performed 07/14/2013) * PREPARE PLATELET PHERESIS UNIT(S)(Performed 07/14/2013) * COMPREHENSIVE METABOLIC PANEL(Performed 07/14/2013) Performed for HELLP (hemolytic anemia/elev liver enzymes/low platelets in ) ([facility]) * CBC W AUTO DIFFERENTIAL(Performed 07/14/2013) Performed for HELLP (hemolytic anemia/elev liver enzymes/low platelets in ) ([facility]) * COAGULATION PANEL W D-DIMER(Performed 07/14/2013) Performed for HELLP (hemolytic anemia/elev liver enzymes/low platelets in ) ([facility]) * GLUCOSE - POINT OF CARE(Performed 07/14/2013) * GLUCOSE - POINT OF CARE(Performed 07/14/2013) * COMPREHENSIVE METABOLIC PANEL(Performed 07/13/2013) * CBC W AUTO DIFFERENTIAL(Performed 07/13/2013) Performed for HELLP (hemolytic anemia/elev liver enzymes/low platelets in ) ([facility]) * SLIDE SCAN HEMATOLOGY(Performed 07/13/2013) Performed for HELLP (hemolytic anemia/elev liver enzymes/low platelets in ) ([facility]) * GLUCOSE - POINT OF CARE(Performed 07/13/2013) * CBC W/O DIFFERENTIAL(Performed 07/13/2013) * SLIDE SCAN HEMATOLOGY(Performed 07/13/2013) * GLUCOSE - POINT OF CARE(Performed 07/13/2013) * GLUCOSE - POINT OF CARE(Performed 07/13/2013) * GLUCOSE - POINT OF CARE(Performed 07/13/2013) * BLOOD TYPE VERIFICATION(Performed 07/13/2013) * PTT(Performed 07/13/2013) * PT-INR(Performed 07/13/2013) * FIBRINOGEN ACTIVITY(Performed 07/13/2013) * GLUCOSE - POINT OF CARE(Performed 07/13/2013) * TYPE + SCREEN PANEL(Performed 07/13/2013) * DIFFERENTIAL MANUAL(Performed 07/13/2013) * COMPREHENSIVE METABOLIC PANEL(Performed 07/13/2013) * CBC W AUTO DIFFERENTIAL(Performed 07/13/2013) * URIC ACID BLOOD(Performed 07/13/2013) * GLUCOSE - POINT OF CARE(Performed 07/13/2013) * GROSS + MICRO EXAM(Performed 03/25/2007) * SECTION (EMERGENCY) Results * PTT [facility] (05/12/2023 10:31 AM [facility]) APTT 24.3 23.0 - 38.4 Seconds 05/12/2023 11:05 AM [facility] Comment:Suggested therapeuti c range for full dose I.V. unfractionated heparin therapy for venous thromboembolism is 71 to 109 seconds. Blood BLOOD SPECIMEN / Unknown Venipuncture / Unknown 05/12/2023 10:31 AM FLOOD CONTROL ENGINEER 05/12/2023 10:34 AM FLOOD CONTROL ENGINEER Lakeisha Vincent MD LAB - COAGULATION OR DERABLES Performing Organization Address [facility]/ZIP Co de Phone Number [address] [address], [facility] [phone] * PT-INR [facility] (05/12/2023 10:31 AM [facility]) PT 13.5 12.1 - 14.8 Seconds 05/12/2023 11:05 AM [facility] INR 1.1 See Comment 05/12/2023 11:05 AM [facility] Comment:The suggested therap eutic range for standard coumadin (warfarin) therapy is an INR of 2.0-3.0. For high-risk patients (Mechanical Mitral Valve Prosthesis, etc.), the suggested prophylactic therapeutic range is an INR of 2.5-3.5. Blood BLOOD SPECIMEN / Unknown Venipuncture / Unknown 05/12/2023 10:31 AM FLOOD CONTROL ENGINEER 05/12/2023 10:34 AM FLOOD CONTROL ENGINEER Lakeisha Vincent MD LAB - COAGULATION OR DERABLES Performing Organization Address [facility]/ZIP Co de Phone Number [address] [address], [place] [phone] * XR ABD OBSTR SERIES W CHEST 1VW (05/12/2023 10:23 AM FLOOD CONTROL ENGINEER) Anatomical Region Laterality Modality Abdomen Radiographic Saige ging 05/12/2023 10:4 5 AM FLOOD CONTROL ENGINEER Impressions 05/12/2023 2:35 PM FLOOD CONTROL ENGINEER IMPRESSION: 1.No acute cardiopulmonary abnormalities. 2.Nonobstructive bowel gas pattern. 3.Questionable calcification to the right of L4-L5; any concern for right ureteral calculus? Report dictated by Manuel Piper MD, PhD (rn radiology). I, Haley Byrne MD have personally reviewed and interpreted this examination/study. > Interpreting Provider: Haley Byrne MD on 05/12/2023 2:35 PM Narrative 05/12/2023 2:35 PM FLOOD CONTROL ENGINEER PROCEDURE: XR ABD OBSTR SERIES W CHEST 1VW DATE/TIME OF EXAM: 05/12/2023 10:23 AM CLINICAL INFORMATION: None relevant/not provided if blank. Indication: R10.84: Abdominal pain, generalized Additional History: COMPARISON: None. FINDINGS: Single view of the chest demonstrates a normal sized heart and pulmonary vasculature. No focal consolidation, pleural effusion or pneumothorax. No acute osseous abnormalities. There is no dilatation of small or large bowel. No free subdiaphragmatic air is seen on the upright chest x-ray. Possible small calcification to the right of the L4-L5. Clips are seen in the right upper quadrant. No acute osseous abnormality. Mild degenerative changes to the lumbosacral junction are present. Procedure Note Haley Byrne MD - 05/12/2023 PROCEDURE: XR ABD OBSTR SERIES W CHEST 1VW DATE/TIME OF EXAM: 05/12/2023 10:23 AM CLINICAL INFORMATION: None relevant/not provided if blank. Indication: R10.84: Abdominal pain, generalized Additional History: COMPARISON: None. FINDINGS: Single view of the chest demonstrates a normal sized heart and pulmonary vasculature. No focal consolidation, pleural effusion or pneumothorax.No acute osseous abnormalities. There is no dilatation of small or large bowel. No free subdiaphragmatic air is seen on the upright chest x-ray. Possible small calcification tothe right of the L4-L5. Clips are seen in the right upper quadrant. No acute osseous abnormality. Mild degenerative changes to the lumbosacraljunction are present. IMPRESSION: 1.No acute cardiopulmonary abnormalities. 2.Nonobstructive bowel gas pattern. 3.Questionable calcification to the right of L4-L5; any concern forright ureteral calculus? Report dictated by Manuel Piper MD, PhD (rn radiology). I, Haley Byrne MD have personally reviewed and interpreted this examination/study. > Interpreting Provider: Haley Byrne MD on 05/12/2023 2:35 PM Lakeisha Vincent MD DIAGNOSTIC IMAGING O RDERABLES * (ABNORMAL) URINALYSIS REFLEX MICROSCOPIC REFLEX CULTURE (05/12/2023 8:24 AM FLOOD CONTROL ENGINEER) Color UA Yellow Straw, Yellow 05/12/2023 8:48 AM [facility] Clarity UA Clear Clear 05/12/2023 8:48 AM [facility] Specific Novinger UA 1.006 1.005 - 1.030 05/12/2023 8:48 AM [facility] pH UA 6.0 5.0 - 8.0 pH 05/12/2023 8:48 AM [facility] Protein UA Negative Negative 05/12/2023 8:48 AM [facility] Glucose UA Negative Negative 05/12/2023 8:48 AM [facility] Ketone UA 1+(A) Negative 05/12/2023 8:48 AM [facility] Bilirubin UA Negative Negative 05/12/2023 8:48 AM [facility] Blood UA Negative Negative 05/12/2023 8:48 AM [facility] Nitrite UA Negative Negative 05/12/2023 8:48 AM [facility] Leukocyte Esterase Negative Negative 05/12/2023 8:48 AM [facility] Urobilinogen UA Negative Negative mg/dL 05/12/2023 8:48 AM [facility] Comment UA Microscopic not indicated. 05/12/2023 8:48 AM [facility] Urine URINE SPECIMEN OBTAINED BY CLEAN CATCH PROCEDURE / Unknown Collection / Unknown 05/12/2023 8:24 AM FLOOD CONTROL ENGINEER 05/12/2023 8:31 AM [facility] - 05/12/2023 8:48 AM FLOOD CONTROL ENGINEER Wayne Xavier MD LAB - URINALYSIS ORD ERABLES [facility] [address] [place] [address], [facility] [phone] * (ABNORMAL) CBC W AUTO DIFFERENTIAL (05/12/2023 8:10 AM FLOOD CONTROL ENGINEER) Only the most recent of7 resultswithin the time period is included. WBC 7.4 4.0 - 10.7 x10E9/L 05/12/2023 8:44 AM [facility] RBC Count 4.19 3.90 - 5.20 x10E12/L 05/12/2023 8:44 AM [facility] Hemoglobin 13.9 11.9 - 15.8 g/dL 05/12/2023 8:44 AM [facility] Hematocrit 38.7 34.8 - 46.1 % 05/12/2023 8:44 AM [facility] MCV 92.4 80.0 - 98.0 fL 05/12/2023 8:44 AM [facility] MCH 33.2 26.7 - 33.6 pg 05/12/2023 8:44 AM [facility] MCHC 35.9 31.7 - 36.3 g/dL 05/12/2023 8:44 AM [facility] RDW-CV 12.2 11.3 - 14.8 % 05/12/2023 8:44 AM [facility] Platelet Count 228 150 - 420 x10E9/L 05/12/2023 8:44 AM [facility] MPV 10.8 7.8 - 11.4 fL 05/12/2023 8:44 AM [facility] Neutrophil % 75.5(H) 41.0 - 74.0 % 05/12/2023 8:44 AM [facility] Lymphocyte % 18.4 17.0 - 47.0 % 05/12/2023 8:44 AM [facility] Monocyte % 4.7 3.0 - 11.0 % 05/12/2023 8:44 AM [facility] Eosinophil % 0.8 0.0 - 7.0 % 05/12/2023 8:44 AM [facility] Basophil % 0.1 0.0 - 1.6 % 05/12/2023 8:44 AM [facility] Immature Granulocytes % 0.5 0.0 - 1.0 % 05/12/2023 8:44 AM [facility] Neutrophil Absolute 5.56 1.60 - 7.50 x10E9/L 05/12/2023 8:44 AM [facility] Lymphocyte Absolute 1.36 1.00 - 4.40 x10E9/L 05/12/2023 8:44 AM [facility] Monocyte Absolute 0.35 0.15 - 1.00 x10E9/L 05/12/2023 8:44 AM [facility] Eosinophil Absolute 0.06 0.00 - 0.60 x10E9/L 05/12/2023 8:44 AM [facility] Basophil Absolute 0.01 0.00 - 0.13 x10E9/L 05/12/2023 8:44 AM [facility] Blood BLOOD SPECIMEN / Unknown Venipuncture / Unknown 05/12/2023 8:10 AM [facility] 05/12/2023 8:26 AM [facility] Wayne Xavier MD LAB - HEMATOLOGY ORD ERABLES Performing Organization Address City/State/[facility] Co de Phone Number [facility] [address] [place] [address], [facility] [phone] * (ABNORMAL) COMPREHENSIVE METABOLIC PANEL (05/12/2023 8:10 AM [facility]) Only the most recent of6 resultswithin the time period is included. BUN 7 7 - 26 mg/dL 05/12/2023 9:00 AM [facility] Creatinine 0.64 0.56 - 0.96 mg/dL 05/12/2023 9:00 AM [facility] Sodium 142 136 - 145 mmol/L 05/12/2023 9:00 AM [facility] Potassium 3.3(L) 3.5 - 4.5 mmol/L 05/12/2023 9:00 AM [facility] Chloride 106 98 - 107 mmol/L 05/12/2023 9:00 AM [facility] CO2 22 22 - 29 mmol/L 05/12/2023 9:00 AM [facility] Glucose 95 70 - 115 mg/dL 05/12/2023 9:00 AM [facility] Calcium 9.6 8.4 - 10.2 mg/dL 05/12/2023 9:00 AM [facility] Protein Total 7.2 6.0 - 8.3 g/dL 05/12/2023 9:00 AM [facility] Albumin 4.2 3.4 - 5.0 g/dL 05/12/2023 9:00 AM [facility] Bilirubin Total 1.0 0.2 - 1.2 mg/dL 05/12/2023 9:00 AM [facility] Alkaline Phosphatase 70 40 - 150 U/L 05/12/2023 9:00 AM [facility] ALT 21 5 - 55 U/L 05/12/2023 9:00 AM [facility] AST 20 5 - 34 U/L 05/12/2023 9:00 AM [facility] Anion Gap 14 6 - 16 05/12/2023 9:00 AM [facility] BUN/Creatinine Ratio 11 7 - 23 05/12/2023 9:00 AM [facility] Osmolality Calculated 292 275 - 295 mOsm/kg 05/12/2023 9:00 AM [facility] Albumin/Globulin Ratio 1.4 1.1 - 2.3 05/12/2023 9:00 AM [facility] eGFR by CKD-EPI >90 >=90 mL/min/1.7 3 m2 05/12/2023 9:00 AM [facility] Blood BLOOD SPECIMEN / Unknown Venipuncture / Unknown 05/12/2023 8:10 AM FLOOD CONTROL ENGINEER 05/12/2023 8:26 AM [facility] Wayne Xavier MD LAB - CHEMISTRY BOBBI OTERO [facility] Organization Address City/State/ZIP Co de Phone Number [facility] [address] [place] [phone], [facility] [phone] * HCG BETA BLOOD QUANTITATIVE (05/12/2023 8:10 AM FLOOD CONTROL ENGINEER) Beta-hCG Total Quantitative <3 mIU/mL 05/12/2023 9:26 AM FLOOD CONTROL ENGINEER [facility] Comment: HCG Numeric Result Interpretation: Non- Females: < 5 mIU/mL Post-Menopausal Females: < 7 mIU/mL This assay is cleared for use in the early detection of only. It is not approved for any other uses such as tumor marker screening, tumor marker monitoring, etc. and should not be used for any other purposes. Blood BLOOD SPECIMEN / Unknown Venipuncture / Unknown 05/12/2023 8:10 AM FLOOD CONTROL ENGINEER 05/12/2023 8:26 AM FLOOD CONTROL ENGINEER Lakeisha Vincent MD LAB - CHEMISTRY BOBBI OTERO Performing Organization Address City/[facility]/ZIP Co de Phone Number [address] [address], [facility] [phone] * LIPASE BLOOD (05/12/2023 8:10 AM FLOOD CONTROL ENGINEER) Pathologist [facility] Lipase 12 8 - 78 U/L 05/12/2023 9:00 AM FLOOD CONTROL ENGINEER [facility] Blood BLOOD SPECIMEN / Unknown Venipuncture / Unknown 05/12/2023 8:10 AM FLOOD CONTROL ENGINEER 05/12/2023 8:26 AM FLOOD CONTROL ENGINEER Narrative [facility] - 05/12/2023 9:00 AM FLOOD CONTROL ENGINEER Lipase results from the [employer] Alinity analyzer may not be comparable with other methodologies. Wayne Xavier MD LAB - CHEMISTRY BOBBI OTERO [address] [address], [facility] [phone] * CARDIAC RHYTHM STRIP ORDER (2015 10:31 PM FLOOD CONTROL ENGINEER) Narrative 2015 10:31 PM FLOOD CONTROL ENGINEER Ordered by an unspecified provider. Scanned Document CARDIAC SERVICES ORD ERABLES * XR SPINE 1 VIEW (05/04/2015 11:38 AM FLOOD CONTROL ENGINEER) Narrative [facility] - 05/07/2015 8:34 AM FLOOD CONTROL ENGINEER No Dictation. Jr Smith MD DIAGNOSTIC IMAGING O RDERASU Performing Organization Address City/[facility]/ZIP Co de Phone Number [facility] [address] [place] [address] * HCG URINE QUALITATIVE - POINT OF CARE (IP) (05/04/2015 9:36 AM FLOOD CONTROL ENGINEER) HCG Qual Urine Negative Negative [facility] POCT TESTING QC Verified Yes Yes [facility] POC T TESTING Urine specimen (specimen) URINE / Unknown 05/04/2015 9:36 AM FLOOD CONTROL ENGINEER Aron Torres MD LAB - POINT OF CAR E ORDERABLES Performing Organization Address [facility] Co de Phone Number [facility] POCT TESTING [address] [place] [address] * RAD OUTSIDE IMG IMPORT (04/29/2015 2:17 PM FLOOD CONTROL ENGINEER) Anatomical Region Laterality Modality Radiographic Saige ging Narrative 05/05/2015 10:14 AM FLOOD CONTROL ENGINEER OUTSIDE IMAGES SUCCESSFULLY IMPORTED Jr Smith MD DIAGNOSTIC IMAGING O RDERABLES * IMAGING/RADIOLOGY/XRAY RESULTS ORDER (04/11/2014) Anatomical Region Laterality Modality Other Cesar Laws MD IMAGING * LAB RESULTS ORDER (07/19/2013 9:14 PM CDT) Narrative 07/19/2013 9:14 PM CDT Ordered by an unspecified provider. Transcriptions Document, Scanned - 07/19/2013 9:14 PM CDT Scanned Document LAB - THERAPEUTIC DR POP MONITORING ORDERABLES * (ABNORMAL) BLOOD GASES CORD ARACELI (ISTAT) (07/14/2013 8:28 AM CDT) pH Cord Venous POCT 7.23(L) 7.28 - 7.40 pH 07/14/2013 8:41 AM CDT [facility] pCO2 Cord Venous POCT 48(H) 35 - 45 mmHg 07/14/2013 8:41 AM CDT [facility] pO2 Cord Venous POCT 15(L) 22 - 33 mmHg 07/14/2013 8:41 AM CDT [facility] HCO3 Cord Arterial POCT 20(L) 22 - 24 mmol/L 07/14/2013 8:41 AM CDT [facility] BE Cord Venous POCT Calc -8(L) -6 - 2 mmol/L 07/14/2013 8:41 AM CDT [facility] TCO2 Cord Venous POCT 22 22 - 30 mmol/L 07/14/2013 8:41 AM [facility] O2 Saturation % Cord Venous Calc POCT 14 % 07/14/2013 8:41 AM T [facility] Site CORD ARACELI 07/14/2013 8:41 AM [facility] Sample iSTAT CORD V 07/14/2013 8:41 AM [facility] Blood CORD BLOOD SPECIMEN / Unknown 07/14/2013 8:28 AM CDT 07/14/2013 8:41 AM CDT Fortino Rosales MD LAB - POINT OF CARE ORDERABLES Performing Organization Address City/State/[facility] Co de Phone Number [facility] [address] [place] [address] * (ABNORMAL) BLOOD GASES CORD ART (ISTAT) (07/14/2013 8:25 AM CDT) pH Cord Arterial POCT 7.22 7.20 - 7.34 pH 07/14/2013 9:56 AM [facility] pCO2 Cord Arterial POCT 52.3 45 - 55 mmHg 07/14/2013 9:56 AM [facility] pO2 Cord Arterial POCT 9(L) 12 - 25 mmHg 07/14/2013 9:56 AM [facility] HCO3 Cord Arterial POCT 21.5 15 - 29 mmol/L 07/14/2013 9:56 AM T [facility] BE Cord Arterial POCT -7(L) -2.9 - 8.3 mmol/L 07/14/2013 9:56 AM [facility] TCO2 Cord Arterial POCT 23 mmol/L 07/14/2013 9:56 AM [facility] O2 Saturation Cord Art % Calc POCT 6 % 07/14/2013 9:56 AM CDT [facility] Site CORD ART 07/14/2013 9:56 AM CDT [facility] Sample iSTAT CORD A 07/14/2013 9:56 AM CDT [facility] Blood CORD BLOOD SPECIMEN / Unknown 07/14/2013 8:25 AM CDT 07/14/2013 9:56 AM CDT Fortino Rosales MD LAB - POINT OF CARE ORDERABLES [facility] [address] [place] [address] * GROSS + MICRO EXAM (STL) (07/14/2013 8:17 AM CDT) Case Report Surgical Pathology Report Case: [id number] Authorizing Provider: Fortino Rosales MD Ordering Provider: Fortino Rosales MD Ordering Location: [address] ANTEPARTUM/MOTHER Collected: 07/14/2013 8:17 AM BABY Pathologist: Keven Em MD Received: 07/15/2013 10:38 AM Signed Out: 07/16/2013 2:52 PM (Final) Specimen: Placenta 07/16/2013 2:52 PM CDT [facility] Final Diagnosis 1. Placenta, delivery: -- Third trimester placenta -- Three vessel umbilical cord -- Unremarkable membranes MC/scs 07/16/2013 2:52 PM [facility] Gross Description Submitted fixed in formalin in one container for gross and microscopic examination, labeled with the patient's name, Maribel Baptiste, and placenta is a placenta with attached segment of umbilical cord and membranes. The placental disc measures 15 x 14 x 1.5 cm. The umbilical cord segment is 17 cm in length and up to 1.5 cm in diameter. There are no knots of the umbilical cord and the surface is yellow-white and glistening. The umbilical cord attachment is eccentric with the nearest margin being 1.5 cm. There are three umbilical cord vessels. The membranes are torn and have a yellow-white transparent appearance. The surface has a blue hue. The maternal surface has areas of loosely adherent coagula. Section surfaces show a spongy red-burgundy placental parenchyma. The placenta weighs 300 grams. Rn Admission sections from the placental disc are submitted in cassettes A1 and A2. Rn Admission sections from the umbilical cord and membranes are submitted in cassette A3. PW/na 07/16/2013 2:52 PM CDT [facility] Microscopic Description Sections of the umbilical cord show three vessels with no evidence of vasculitis or funisitis. Sections of the membranes show unremarkable histology and are free of inflammation. Meconium is not identified. Sections of the placental disc show mature chorionic villi with no evidence of hemorrhage or infarction. MC/devika 07/16/2013 2:52 PM CDT [facility] Synoptic Report 07/16/2013 2:52 PM CDT [facility] Pathology/Cytolo gy ENTIRE PLACENTA / Unknown 07/14/2013 8:17 AM CDT 07/15/2013 10:38 AM CDT Fortino Rosales MD LAB - PATHOLOGY/CYTO LOGY ORDERABLES Performing Organization Address City/State/[facility] Co de Phone Number [facility] [address] [place] [address] * PREPARE PLATELET PHERESIS UNIT(S) (07/14/2013 7:42 AM CDT) Only the most recent of2 resultswithin the time period is included. Unit Donor # [id number] 07/14/2013 7:48 AM CDT [facility] Product Code [id number] 07/14/2013 7:48 AM CDT [facility] ABO Donor Type AB 07/14/2013 7:48 AM CDT [facility] Rh Type Unit POS 07/14/2013 7:48 AM CDT [facility] Unit Status Available XM 07/14/2013 7:48 AM CDT [facility] Unit Description [id number] PLT, IRR, LR, APH, ACD-A 07/14/2013 7:48 AM CDT [facility] Miscellaneous samples (specimen) BLOOD SPECIMEN / Unknown 07/14/2013 7:42 AM CDT 07/14/2013 7:48 AM CDT Melissa Ahumada MD LAB - BLOOD BA NK ORDERABLES [facility] * (ABNORMAL) COAGULATION PANEL W D-DIMER (07/14/2013 6:07 AM CDT) PT <9.2(L) 9.4 - 11.4 sec 07/14/2013 6:51 AM CDT [facility] INR 0.86(L) 0.89 - 1.07 07/14/2013 6:51 AM T [facility] PTT 25.2 24.0 - 33.0 sec 07/14/2013 6:51 AM T [facility] Fibrinogen 445 150 - 450 mg/dL 07/14/2013 6:51 AM T [facility] D-Dimer 9.83(H) 0 - 0.5 mg/L FEU 07/14/2013 6:51 AM CDT [facility] Platelet Count 48(L) 153 - 416 x10^9/L 07/14/2013 6:51 AM CDT [facility] Blood BLOOD SPECIMEN / Unknown Venipuncture / Unknown 07/14/2013 6:07 AM CDT 07/14/2013 6:15 AM CDT Narrative [facility] - 07/14/2013 6:51 AM CDT Elevated results above the normal range may indicate DIC in the appropriate clinical setting. Serial evaluations may yield information regarding the clinical course. Results of this test should always be interpreted in conjunction with the patient's medical history, clin ical presentation and other findings. At the clinical cut-off of 0.50 mg/L FEU the Negative Predictive Value using INNOVANCE D-dimer is 98%. A very low percentage of patients with DVT may yield D-dimer results below the cut-off of 0.50 mg/L FEU. This is known to be prevalent in patients with distal DVT and in rare cases of PE. Lisa Null MD LAB - COAGULATION O RDERABLES Performing Organization Address [facility] Co de Phone Number [facility] [address] [place] [phone] * (ABNORMAL) GLUCOSE - POINT OF CARE (07/14/2013 5:02 AM CDT) Only the most recent of10 resultswithin the time period is included. Pathologist [facility] Glucose WB/POC 121(H) 70 - 106 mg/dL 07/14/2013 1:59 PM CDT [facility] Blood BLOOD SPECIMEN / Unknown 07/14/2013 5:02 AM CDT 07/14/2013 1:59 PM CDT Fortino Rosales MD LAB - POINT OF CARE ORDERABLES Performing Organization Address [facility] de Phone Number [facility] [address] [place] [phone] * (ABNORMAL) SLIDE SCAN HEMATOLOGY (07/13/2013 11:59 PM CDT) Only the most recent of2 resultswithin the time period is included. Pathologist [facility] Platelet Estimation Decreased (A) Normal, Adequate platelets 07/14/2013 1:12 AM CDT [facility] Blood BLOOD SPECIMEN / Unknown 07/13/2013 11:59 PM CDT 07/14/2013 12:05 AM CDT Lisa Null MD LAB - HEMATOLOGY OR DERABLES Performing Organization Address [facility] Co de Phone Number [facility] [address] [place] [phone] * (ABNORMAL) CBC W/O DIFFERENTIAL (07/13/2013 11:14 PM CDT) Pathologist [facility] WBC 14.9(H) 4.4 - 10.7 x10^9/L 07/14/2013 12:09 AM CDT [facility] Comment: RBC 4.27 3.80 - 5.20 x10^12/L 07/14/2013 12:09 AM CDT [facility] Hemoglobin 13.7 12.0 - 15.6 gm/dL 07/14/2013 12:09 AM CDT [facility] Hematocrit 37.8 35.9 - 45.5 % 07/14/2013 12:09 AM CDT [facility] MCV 88.5 80.7 - 98.3 fl 07/14/2013 12:09 AM CDT [facility] MCH 32.1 26.7 - 34.0 pg 07/14/2013 12:09 AM CDT [facility] MCHC 36.2(H) 30.8 - 35.9 gm/dL 07/14/2013 12:09 AM CDT [facility] Platelet Count 74(L) 153 - 416 x10^9/L 07/14/2013 12:09 AM T [facility] RDW-CV 13.2 12.1 - 14.9 % 07/14/2013 12:09 AM CDT [facility] Blood BLOOD SPECIMEN / Unknown 07/13/2013 11:14 PM CDT 07/13/2013 11:26 PM CDT Melissa Ahumada MD LAB - HEMATOLO GY ORDERABLES [facility] [address] [place] [address] * BLOOD TYPE VERIFICATION (07/13/2013 6:55 PM CDT) ABO O 07/13/2013 7:17 PM CDT [facility] Rh Type Positive 07/13/2013 7:17 PM CDT [facility] Miscellaneous samples (specimen) BLOOD SPECIMEN / Unknown Venipuncture / Unknown 07/13/2013 6:55 PM CDT 07/13/2013 7:02 PM CDT Fortino Rosales MD LAB - BLOOD BANK ORD ERABLES [facility] * (ABNORMAL) FIBRINOGEN ACTIVITY (07/13/2013 6:55 PM CDT) Fibrinogen 461(H) 150 - 450 mg/dL 07/13/2013 11:25 PM CDT [facility] Blood BLOOD SPECIMEN / Unknown Venipuncture / Unknown 07/13/2013 6:55 PM CDT 07/13/2013 7:02 PM CDT Melissa Ahumada MD LAB - COAGULAT ION ORDERABLES [facility] [address] [place] [address] * PTT (07/13/2013 6:55 PM CDT) PTT 26.0 24.0 - 33.0 sec 07/13/2013 11:25 PM CDT [facility] Blood BLOOD SPECIMEN / Unknown Venipuncture / Unknown 07/13/2013 6:55 PM CDT 07/13/2013 7:02 PM CDT Melissa Ahumada MD LAB - COAGULAT ION ORDERABLES Performing Organization Address [facility] Co de Phone Number [facility] [address] [place] [address] * (ABNORMAL) PT-INR (07/13/2013 6:55 PM CDT) PT <9.2(L) 9.4 - 11.4 sec 07/13/2013 11:25 PM CDT [facility] INR <0.86(L) 0.89 - 1.07 07/13/2013 11:25 PM CDT [facility] Blood BLOOD SPECIMEN / Unknown Venipuncture / Unknown 07/13/2013 6:55 PM CDT 07/13/2013 7:02 PM CDT Narrative [facility] - 07/13/2013 11:25 PM CDT Conventional Anticoagulant Therapy INR Reference Ranges: 2.0-3.0 Intensive Anticoagulant Therapy INR Reference Ranges: 2.5-3.5 Melissa Ahumada MD LAB - COAGULAT ION ORDERABLES Performing Organization Address City/[facility]/ZIP Co de Phone Number [facility] [address] [place] [address] * TYPE + SCREEN PANEL (07/13/2013 5:26 PM CDT) ABO O 07/13/2013 6:46 PM CDT [facility] Rh Type Positive 07/13/2013 6:46 PM CDT [facility] Comment:History check perfor med. Retype required. Antibody Screen Negative 07/13/2013 6:46 PM CDT [facility] Miscellaneous samples (specimen) BLOOD SPECIMEN / Unknown Venipuncture / Unknown 07/13/2013 5:26 PM CDT 07/13/2013 5:35 PM CDT Keyla March MD LAB - BLOOD BA NK ORDERABLES [facility] * (ABNORMAL) DIFFERENTIAL MANUAL (07/13/2013 5:26 PM CDT) Pathologist [facility] WBC Auto 13.3 x10^9/L 07/13/2013 6:49 PM CDT [facility] Neutrophil % Manual 84(H) 44 - 73 % 07/13/2013 6:49 PM CDT [facility] Lymphocytes % Manual 11(L) 20 - 43 % 07/13/2013 6:49 PM CDT [facility] Monocytes % Manual 2(L) 5 - 13 % 07/13/2013 6:49 PM CDT [facility] Band % Manual 3 0 - 11 % 07/13/2013 6:49 PM CDT [facility] Cells Counted 100 # cells 07/13/2013 6:49 PM CDT [facility] Platelet Estimation Decreased( A) Normal, Adequate platelets 07/13/2013 6:49 PM CDT [facility] RBC Morphology Normal 07/13/2013 6:49 PM CDT [facility] WBC Morph Normal 07/13/2013 6:49 PM CDT [facility] Blood BLOOD SPECIMEN / Unknown 07/13/2013 5:26 PM CDT 07/13/2013 5:35 PM CDT Keyla March MD LAB - HEMATOLO GY ORDERABLES [facility] [address] [place] [address] * (ABNORMAL) URIC ACID BLOOD (07/13/2013 5:26 PM CDT) Uric Acid 8.1(H) 2.5 - 6.2 mg/dL 07/13/2013 7:40 PM CDT [facility] Comment: Blood BLOOD SPECIMEN / Unknown 07/13/2013 5:26 PM CDT 07/13/2013 7:28 PM CDT Tico Loo MD LAB - CHEMISTRY BOBBI OTERO [facility] [address] [place] [address] * GROSS + MICRO EXAM (03/25/2007 10:15 AM FLOOD CONTROL ENGINEER) Result CASE NUMBER [id number] [facility] PATH REPORT Comment: ORDERING PHYSICIAN KAYLIE BARBER SPECIMEN TYPE Duodenum CLINICAL HISTORY The patient is a 16-year-old girl with a history of abdominal pain who underwent upper endoscopy. The endoscopic findings were chronic gastritis and esophagitis. GROSS DESCRIPTION The specimens are received fixed in formalin in three containers for gross and microscopic examination. In the first container, labeled duodenum, are two 3 mm, soft, yellow-panchal tissue fragments submitted in toto as A . In the second container, labeled stomach, are three 3 mm, soft, yellow-panchal tissue fragments submitted in toto as B . In the third container, labeled esophagus, are two 4 mm, soft, chowdhury-pink tissue fragments submitted in toto as C . (CT/ld) MICROSCOPIC DESCRIPTION A) 3 H/E, B) 3 H/E, C) 3 H/E Sections of the duodenal biopsy show fragments of unremarkable duodenal mucosa. Sections of the stomach biopsy show fragments of gastric mucosa with marked expansion of the lamina propria by mononuclear inflammatory infiltrate. Occasional pit dropout is noted. There is neutrophilic infiltrate in occasional pit glandular epithelium. H. pylori-like organisms are seen. Sections of the esophageal biopsy show fragments of unremarkable esophageal mucosa. (GC/CSA/lw) DIAGNOSIS DIAGNOSIS A) SMALL INTESTINE, DUODENUM, BIOPSY - NO PATHOLOGIC DIAGNOSIS. B) STOMACH, BIOPSY - ACTIVE CHRONIC GASTRITIS, MODERATE. - H. PYLORI ORGANISMS PRESENT. C) ESOPHAGUS, BIOPSY - NO PATHOLOGIC DIAGNOSIS. This case has been personally reviewed and interpreted by the attending (teaching) pathologist. International Exchange Coordinator CAMERON MALHOTRA RESIDENT IN PATHOLOG Silvestre Rowley M.D. PATHOLOGIST Ladarius Ugalde M.D. ELECTRONICALLY AMI Ladarius Ugalde MISCELLANEOUS SAMPLES / Unknown 03/25/2007 10:15 AM FLOOD CONTROL ENGINEER 03/25/2007 10:45 AM FLOOD CONTROL ENGINEER Historical Provider MD LAB - PATHOLOGY/C YTOLOGY ORDERABLES [facility] PATH REPORT Care Teams Metallurgy Teacher Relationship Specialty Start Date End Date Cesar Laws MD PCP - General Family Medicine 04/16/15 Kiran Flowers, RN High School Assistant Football Coach 05/05/15
--- OUTSIDE RECORDS SUMMARY | 2024-06-27 16:23 | XMS_ITS | Clinical Summary ---
Author Organization [facility] Address [address] [place] [address] Care Team Providers Care Bung Sewer Name Role Phone Chrisite Moulton Primary Care Provider [phone] Allergies No known active allergies Medications ibuprofen (MOTRIN) 600 MG tablet 05/15/19 23 Active FLUoxetine (PROZAC) 20 MG capsule Take 1 capsule (20 mg total) by mouth daily. 07/15/19 23 Active cyclobenzaprine (FLEXERIL) 5 MG tabletIndicatio ns:Chronic bilateral low back pain without sciatica Take 1 tablet (5 mg total) by mouth as needed. FOR MUSCLE SPASMS 30 tablet 02/03/20 23 Active Additional Information Patient taking differently:5 mg Oral As needed,FOR MUSCLE SPASMS, Reported on 06/22/2023 Tirzepatide (MOUNJARO SC) Inject 4 mg into the skin every 7 days. Active sucralfate (CARAFATE) 1 G tabletIndicatio ns:Epigastric pain,Nausea and vomiting, unspecified vomiting type TAKE 1 TABLET (1 G TOTAL) BY MOUTH 3 TIMES A DAY BEFORE MEALS 270 tablet 1 05/31/19 24 Active omeprazole (PRILOSEC) 20 MG capsuleIndicati ons:Gastroesoph ageal reflux disease without esophagitis Take 1 capsule (20 mg total) by mouth daily. 90 capsule 3 06/22/19 24 Active GAVILYTE-G 236 g solution see administration instructions. 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 Anxiety 04/07/2015 Insomnia 04/07/2015 Lumbar disc herniation 03/25/2015 Spinal stenosis of lumbar region 03/25/2015 Chest wall pain 04/06/2014 Migraine headache 01/29/2014 Chronic pain 05/02/2013 Osteoarthritis of lumbar spine 05/02/2013 Sciatica 08/06/2012 Chronic low back pain 03/01/2012 Esophageal reflux 03/01/2012 Resolved Problems Problem Noted Date Diagnosed Date Resolved Date Normal ([facility]) 05/02/2013 1 06/06/2017 Encounter for preventive health examination 03/01/2012 12/26/2019 Immunizations Name Administration Dates Next Due Flucelvax 6 Months+ (Prefilled Syringe) 03/07/20 Fluzone 6 Months+ Quad (0.5 mL Prefilled Syringe ) 02/01/2022 Fluzone Adult - >Age 3 (Prefilled Syringe) 03/06 Influenza Adult (Generic) 12/27/2014,03/07/2013 Tdap (Boostrix) 12/10/2014 Tdap (Generic) 12/10/2014,07/15/2013 Family History Medical History Relation Comments Arthritis Mother Mental Health Mother None Mother Relation Status Comments Mother Social History Tobacco Use Types Packs/Day Years Used Date Smoking Tobacco: Never Smokeless Tobacco: Never Tobacco Cessation:Counseling Given: Not Answered Alcohol Use Standard Drinks/Week Comments Not Currently 10 (1 standard drink = 0.6 oz pu re alcohol) PHQ-2 Answer Date Recorded Patient Health Questionnaire-2 Score 0 06/22/2023 Comments No Sex and Gender Information Value Date Recorded Sex Assigned at Not on file Legal Sex Female 7:35 PM CDT Gender Identity Not on file Sexual Orientation Not on file Last Filed Vital Signs Vital Sign Reading Time Taken Comments Blood Pressure 118/74 07/09/2023 12:45 PM CDT Pulse 76 07/09/2023 12:45 PM CDT Temperature 36.7 C (98.1 F) 07/09/2023 12:18 PM CDT Respiratory Rate 18 07/09/2023 12:45 PM CDT Oxygen Saturation 99% 07/09/2023 12:45 PM CDT Inhaled Oxygen Concentration - - Weight 62.1 kg (137 lb) 06/26/2023 3:41 PM CDT Height 157.5 cm (5' 2 ) 06/26/2023 3:41 PM CDT Body Mass Index 25.06 06/26/2023 3:41 PM CDT Plan of Treatment Health Maintenance Due Date Last Done Comments Cervical Cancer Screening Pap Smear (Age 30 to 64) Every 3 Years 1990 Hepatitis B Vaccines (1 of 3 - 19+ 3-dose series) 2009 Cervical Cancer Screening Pap with HPV Testing (Age 30 to 64) Every 5 Years 2020 Cervical Cancer Screening with HPV 2020 COVID-19 Vaccine ( season) 2023 Influenza Adult (#1) 2024 02/01/2022, 03/06/2018, 12/27/2014, Additional history exists PHQ-2 (Physician [place]) 04/16/2024 06/22/2023 Annual Physical 06/21/2024 06/22/2023, 02/10/2022 DTaP, Tdap and Td Vaccines (4 - Td or Tdap) 12/10/2024 12/10/2014, 12/10/2014, 07/15/2013 Hepatitis C Completed 02/10/2022 HPV Vaccines Aged Out No longer eligi ble based on patient's age to complete this topic Meningococcal B Vaccine Aged Out No l onger eligible based on patient's age to complete this topic Meningococcal Vaccine Aged Out No kya migel eligible based on patient's age to complete this topic Pneumococcal Vaccine: Pediatrics (0 to 5 Years) and At-Risk Patients (6 to 64 Years) Aged Out No longer eligible based on patient's age to complete this topic RSV Immunizations Under 20 Months Aged Out No longer eligible based on patient's age to complete this topic Procedures Procedure Name Priority Date/Time Associated Diagnosis Comments HEPATITIS C ANTIBODY Routine 02/10/2022 12:03 PM CDT Need for hepatitis C screening test from Last 3 Months or Most Recently Relevant to Health Maintenance Results * HEPATITIS C AB ([facility] ONLY) (02/10/2022 12:03 PM CDT) HEPATITIS C AB NON-REACTI VE NON-REACT DIANA 02/10/2022 9:39 PM CDT [facility] Comment: ANTIBODIES TO HCV NOT DETECTED. DOES NOT EXCLUDE THE POSSIBILITY OF EXPOSURE TO HCV. 02/10/2022 12:0 3 PM CDT [facility] Final Resul t [facility] [address] [place] [address], [id number] from Last 3 Months or Most Recently Relevant to Health Maintenance Insurance [facility] Care Teams Bung Sewer Relationship Specialty Start Date End Date Christie Moulton APNP [address] [place] [id number] PCP - General NURSE PRACTITIONER 01/28/18
--- OUTSIDE RECORDS SUMMARY | 2024-06-27 16:23 | XMS_ITS | Clinical Summary ---
Author Organization [facility] Address [address] [place] [address] Care Team Providers Care Correctional Casework Specialist Name Role Phone Cesar Laws MD Primary Care Provide r Kiran Flowers RN Unavailable [phone] Source Comments [facility],non-owned Affiliates and Associated Physician Practices is amultiple site organization consisting of ambulatory clinics and hospital sitesin [place], [place], [place] and [place]. This disclosure is being madepursuant to the Care Everywhere program and may not contain all information available regarding this patient. Last updated 18.[facility] Allergies No known active allergies Medications * [...] Administration Dates Next Due TDAP (7yrs+) 07/15/2013 Family History Medical History Relation Name Comments Cancer Maternal Grandmother Heart Disease Paternal Grandfather Relation Name Status Comments Maternal Grandmother Paternal Grandfather Social History Tobacco Use Types Packs/Day Years [...] Comments Blood Pressure 113/86 05/12/2023 12:15 PM DOUBLE BASS PLAYER Pulse 100 05/12/2023 7:48 AM DOUBLE BASS PLAYER Temperature 36.7 C (98 F) 05/12/2023 12:15 PM DOUBLE BASS PLAYER Respiratory Rate 16 05/12/2023 12:15 PM DOUBLE BASS PLAYER Oxygen Saturation 99% 05/12/2023 12:15 PM DOUBLE BASS PLAYER Inhaled Oxygen Concentration - - Weight 66.7 kg (147 lb) 05/12/2023 7:48 AM DOUBLE BASS PLAYER Height 157.5 cm (5' 2 ) 05/12/2023 7:48 AM DOUBLE BASS PLAYER Body Mass Index 26.89 05/12/2023 7:48 AM DOUBLE BASS PLAYER Plan of Treatment Health Maintenance Due Date Last Done Comments PAP SMEAR 1990 HIV SCREENING 2005 HEPATITIS C SCREENING 05/03/2008 HEPATITIS B VACCINE (1 of 3 - 19+ 3-dose series) 2009 DTAP/TDAP/TD VACCINES (2 - Td or Tdap) 07/16/2023 07/15/2013 COVID-19 VACCINE ( - season) 2023 INFLUENZA VACCINE (#1) 2023 2, 03/06/2018, 12/27/2014, Additional history exists DEPRESSION SCREENING 04/16/2024 ZOSTER VACCINE (1 of 2) 2040 HIB VACCINE Aged Out No longer eligi ble based on patient's age to complete this topic HPV VACCINE Aged Out No longer eligi ble based on patient's age to complete this topic MENINGOCOCCAL (Group B) VACCINE SHARED DECISION-MAKING Aged Out No longer eligible based on patient's age to complete this topic MENINGOCOCCAL GROUPS A/C/Y/W VACCINE Aged Out No longer eligible based on patient's age to complete this topic PNEUMOCOCCAL VACCINE Aged Out No long er eligible based on patient's age to complete this topic Medical Devices Implanted Type [employer] Reactor Operator Device Identifier Shelf Expiration Date Model / Serial / Lot Wax Bone Implanted:Qty: 1 on 05/04/2015 by Jr Smith MD at [facility] Right: Spine Lumbar [employer] 07/16/2019 [id number] / / [id number] Advance Directives * Full Code (Latest Code Status on File) Date Activated Date Inactivated Comments 05/04/2015 3:51 PM 05/05/2015 1:50 PM * Full Code Date Activated Date Inactivated Comments 07/14/2013 9:17 AM 07/18/2013 5:15 PM * Full Code Date Activated Date Inactivated Comments 07/13/2013 4:03 PM 07/14/2013 9:17 AM Care Teams Correctional Casework Specialist Relationship Specialty Start Date End Date Cesar Laws MD PCP - General Family Medicine 04/16/15 Kiran Flowers, RN Financial Director 05/05/15
[2024-06-27 17:23] VITALS: BP 120/72; PULSE 88; RESP 16; TEMP 36.4; O2SAT 100
--- NOTE | 2024-06-27 18:57 | PC.NURSE ---
Pt. alerted this RN that she is leaving the [facility] before seeing a provider. GCS 15. Pt. walked out with c-collar still on.
--- OUTSIDE RECORDS SUMMARY | 2024-06-27 19:58 | XMS_ITS | Patient Health Summary ---
Author Organization [facility] Address [address] [place] [address] Care Team Providers Care Safety And Occupational Health Manager Name Role Phone Cesar Laws MD Primary Care Provide r Kiran Flowers RN Unavailable [phone] Note from [facility],non-owned Affiliates and Associated Physician Practices is amultiple site organization consisting of ambulatory clinics and hospital sitesin [place], [place], [place] and [place]. This disclosure is being madepursuant to the Care Everywhere program and may not contain all information available regarding this patient. Last updated 18.[facility] Allergies No known active allergies [...] Comments Blood Pressure 113/86 05/12/2023 12:15 PM [employer] Pulse 100 05/12/2023 7:48 AM [employer] Temperature 36.7 C (98 F) 05/12/2023 12:15 PM [employer] Respiratory Rate 16 05/12/2023 12:15 PM [employer] Oxygen Saturation 99% 05/12/2023 12:15 PM [employer] Inhaled Oxygen Concentration - - Weight 66.7 kg (147 lb) 05/12/2023 7:48 AM [employer] Height 157.5 cm (5' 2 ) 05/12/2023 7:48 AM [employer] Body Mass Index 26.89 05/12/2023 7:48 AM [employer] Medical Devices Implanted Type Area Vibration Technician Device Identifier Shelf Expiration Date Model / Serial / Lot Wax Bone Implanted:Qty: 1 on 05/04/2015 by Jr Smith MD at [facility] Right: Spine Lumbar [employer] 07/16/2019 [id number] / / [id number] Procedures * PTT [facility](Performed 05/12/2023) * PT-INR [...] (hemolytic anemia/elev liver enzymes/low platelets in ) ([facility]) * PREPARE PLATELET PHERESIS UNIT(S)(Performed 07/14/2013) * PREPARE PLATELET PHERESIS UNIT(S)(Performed 07/14/2013) * COMPREHENSIVE METABOLIC PANEL(Performed 07/14/2013) Performed for HELLP (hemolytic anemia/elev liver enzymes/low platelets in ) ([facility]) * CBC W AUTO DIFFERENTIAL(Performed 07/14/2013) Performed for HELLP (hemolytic anemia/elev liver enzymes/low platelets in ) ([facility]) * COAGULATION PANEL W D-DIMER(Performed 07/14/2013) Performed for HELLP (hemolytic anemia/elev liver enzymes/low platelets in ) ([facility]) * GLUCOSE - POINT OF CARE(Performed 07/14/2013) * GLUCOSE - POINT OF CARE(Performed 07/14/2013) * COMPREHENSIVE METABOLIC PANEL(Performed 07/13/2013) * CBC W AUTO DIFFERENTIAL(Performed 07/13/2013) Performed for HELLP (hemolytic anemia/elev liver enzymes/low platelets in ) ([facility]) * SLIDE SCAN HEMATOLOGY(Performed 07/13/2013) Performed for HELLP (hemolytic anemia/elev liver enzymes/low platelets in ) ([facility]) * GLUCOSE - POINT OF CARE(Performed [...] 03/25/2007) * SECTION (EMERGENCY) Results * PTT [facility] (05/12/2023 10:31 AM [facility]) APTT 24.3 23.0 - 38.4 Seconds 05/12/2023 11:05 AM [facility] Comment:Suggested therapeuti c range for full dose I.V. unfractionated heparin therapy for venous thromboembolism is 71 to 109 seconds. Blood BLOOD SPECIMEN / Unknown Venipuncture / Unknown 05/12/2023 10:31 AM [employer] 05/12/2023 10:34 AM [employer] Lakeisha Vincent MD LAB - COAGULATION OR DERABLES Performing Organization Address [facility]/ZIP Co de Phone Number [address] [address], [facility] [phone] * PT-INR [facility] (05/12/2023 10:31 AM [facility]) PT 13.5 12.1 - 14.8 Seconds 05/12/2023 11:05 AM [facility] INR 1.1 See Comment 05/12/2023 11:05 AM [facility] Comment:The suggested therap eutic range for standard coumadin (warfarin) therapy is an INR of 2.0-3.0. For high-risk patients (Mechanical Mitral Valve Prosthesis, etc.), the suggested prophylactic therapeutic range is an INR of 2.5-3.5. Blood BLOOD SPECIMEN / Unknown Venipuncture / Unknown 05/12/2023 10:31 AM [employer] 05/12/2023 10:34 AM [employer] Lakeisha Vincent MD LAB - COAGULATION OR DERABLES Performing Organization Address [facility]/ZIP Co de Phone Number [address] [address], [place] [phone] * XR ABD OBSTR SERIES W CHEST 1VW (05/12/2023 10:23 AM [employer]) Anatomical Region Laterality Modality Abdomen Radiographic Saige ging 05/12/2023 10:4 5 AM [employer] Impressions 05/12/2023 2:35 PM [employer] IMPRESSION: 1.No acute cardiopulmonary abnormalities. 2.Nonobstructive bowel gas pattern. 3.Questionable calcification to the right of L4-L5; any concern for right ureteral calculus? Report dictated by Manuel Piper MD, PhD (vice president digital strategist). I, Haley Byrne MD have personally reviewed and interpreted this examination/study. > Interpreting Provider: Haley Byrne MD on 05/12/2023 2:35 PM Narrative 05/12/2023 2:35 PM [employer] PROCEDURE: XR ABD OBSTR SERIES W CHEST [...] Report dictated by Manuel Piper MD, PhD (vice president digital strategist). I, Haley Byrne MD have personally reviewed and interpreted this examination/study. > Interpreting Provider: Haley Byrne MD on 05/12/2023 2:35 PM Lakeisha Vincent MD DIAGNOSTIC IMAGING O RDERABLES * (ABNORMAL) URINALYSIS REFLEX MICROSCOPIC REFLEX CULTURE (05/12/2023 8:24 AM [employer]) Color UA Yellow Straw, Yellow 05/12/2023 8:48 AM [facility] Clarity UA Clear Clear 05/12/2023 8:48 AM [facility] Specific [place] UA 1.006 1.005 - 1.030 05/12/2023 8:48 AM [facility] pH UA 6.0 5.0 - 8.0 pH 05/12/2023 8:48 AM [facility] Protein UA Negative Negative 05/12/2023 8:48 AM [facility] Glucose UA Negative Negative 05/12/2023 8:48 AM [facility] Ketone UA 1+(A) Negative 05/12/2023 8:48 AM [facility] Bilirubin UA Negative Negative 05/12/2023 8:48 AM [facility] Blood UA Negative Negative 05/12/2023 8:48 AM [facility] Nitrite UA Negative Negative 05/12/2023 8:48 AM [facility] Leukocyte Esterase Negative Negative 05/12/2023 8:48 AM [facility] Urobilinogen UA Negative Negative mg/dL 05/12/2023 8:48 AM [facility] Comment UA Microscopic not indicated. 05/12/2023 8:48 AM [facility] Urine URINE SPECIMEN OBTAINED BY CLEAN CATCH PROCEDURE / Unknown Collection / Unknown 05/12/2023 8:24 AM [employer] 05/12/2023 8:31 AM [facility] - 05/12/2023 8:48 AM [employer] Wayne Xavier MD LAB - URINALYSIS ORD ERABLES [facility] [address] [place] [address], [facility] [phone] * (ABNORMAL) CBC W AUTO DIFFERENTIAL (05/12/2023 8:10 AM [employer]) Only the most recent of7 resultswithin the time period is included. WBC 7.4 4.0 - 10.7 x10E9/L 05/12/2023 8:44 AM [facility] RBC Count 4.19 3.90 - 5.20 x10E12/L 05/12/2023 8:44 AM [facility] Hemoglobin 13.9 11.9 - 15.8 g/dL 05/12/2023 8:44 AM [facility] Hematocrit 38.7 34.8 - 46.1 % 05/12/2023 8:44 AM [facility] MCV 92.4 80.0 - 98.0 fL 05/12/2023 8:44 AM [facility] MCH 33.2 26.7 - 33.6 pg 05/12/2023 8:44 AM [facility] MCHC 35.9 31.7 - 36.3 g/dL 05/12/2023 8:44 AM [facility] RDW-CV 12.2 11.3 - 14.8 % 05/12/2023 8:44 AM [facility] Platelet Count 228 150 - 420 x10E9/L 05/12/2023 8:44 AM [facility] MPV 10.8 7.8 - 11.4 fL 05/12/2023 8:44 AM [facility] Neutrophil % 75.5(H) 41.0 - 74.0 % 05/12/2023 8:44 AM [facility] Lymphocyte % 18.4 17.0 - 47.0 % 05/12/2023 8:44 AM [facility] Monocyte % 4.7 3.0 - 11.0 % 05/12/2023 8:44 AM [facility] Eosinophil % 0.8 0.0 - 7.0 % 05/12/2023 8:44 AM [facility] Basophil % 0.1 0.0 - 1.6 % 05/12/2023 8:44 AM [facility] Immature Granulocytes % 0.5 0.0 - 1.0 % 05/12/2023 8:44 AM [facility] Neutrophil Absolute 5.56 1.60 - 7.50 x10E9/L 05/12/2023 8:44 AM [facility] Lymphocyte Absolute 1.36 1.00 - 4.40 x10E9/L 05/12/2023 8:44 AM [facility] Monocyte Absolute 0.35 0.15 - 1.00 x10E9/L 05/12/2023 8:44 AM [facility] Eosinophil Absolute 0.06 0.00 - 0.60 x10E9/L 05/12/2023 8:44 AM [facility] Basophil Absolute 0.01 0.00 - 0.13 x10E9/L 05/12/2023 8:44 AM [facility] Blood BLOOD SPECIMEN / Unknown Venipuncture / Unknown 05/12/2023 8:10 AM [facility] 05/12/2023 8:26 AM [facility] Wayne Xavier MD LAB - HEMATOLOGY ORD ERABLES Performing Organization Address City/State/[facility] Co de Phone Number [facility] [address] [place] [address], [facility] [phone] * (ABNORMAL) COMPREHENSIVE METABOLIC PANEL (05/12/2023 8:10 AM [facility]) Only the most recent of6 resultswithin the time period is included. BUN 7 7 - 26 mg/dL 05/12/2023 9:00 AM [facility] Creatinine 0.64 0.56 - 0.96 mg/dL 05/12/2023 9:00 AM [facility] Sodium 142 136 - 145 mmol/L 05/12/2023 9:00 AM [facility] Potassium 3.3(L) 3.5 - 4.5 mmol/L 05/12/2023 9:00 AM [facility] Chloride 106 98 - 107 mmol/L 05/12/2023 9:00 AM [facility] CO2 22 22 - 29 mmol/L 05/12/2023 9:00 AM [facility] Glucose 95 70 - 115 mg/dL 05/12/2023 9:00 AM [facility] Calcium 9.6 8.4 - 10.2 mg/dL 05/12/2023 9:00 AM [facility] Protein Total 7.2 6.0 - 8.3 g/dL 05/12/2023 9:00 AM [facility] Albumin 4.2 3.4 - 5.0 g/dL 05/12/2023 9:00 AM [facility] Bilirubin Total 1.0 0.2 - 1.2 mg/dL 05/12/2023 9:00 AM [facility] Alkaline Phosphatase 70 40 - 150 U/L 05/12/2023 9:00 AM [facility] ALT 21 5 - 55 U/L 05/12/2023 9:00 AM [facility] AST 20 5 - 34 U/L 05/12/2023 9:00 AM [facility] Anion Gap 14 6 - 16 05/12/2023 9:00 AM [facility] BUN/Creatinine Ratio 11 7 - 23 05/12/2023 9:00 AM [facility] Osmolality Calculated 292 275 - 295 mOsm/kg 05/12/2023 9:00 AM [facility] Albumin/Globulin Ratio 1.4 1.1 - 2.3 05/12/2023 9:00 AM [facility] eGFR by CKD-EPI >90 >=90 mL/min/1.7 3 m2 05/12/2023 9:00 AM [facility] Blood BLOOD SPECIMEN / Unknown Venipuncture / Unknown 05/12/2023 8:10 AM [employer] 05/12/2023 8:26 AM [facility] Wayne Xavier MD LAB - CHEMISTRY BOBBI OTERO [facility] Organization Address City/State/ZIP Co de Phone Number [facility] [address] [place] [address], [facility] [phone] * HCG BETA BLOOD QUANTITATIVE (05/12/2023 8:10 AM [employer]) Beta-hCG Total Quantitative <3 mIU/mL 05/12/2023 9:26 AM [employer] [facility] Comment: HCG Numeric Result Interpretation: Non- [...] Unknown Venipuncture / Unknown 05/12/2023 8:10 AM [employer] 05/12/2023 8:26 AM [employer] Lakeisha Vincent MD LAB - CHEMISTRY BOBBI OTERO Performing Organization Address City/[facility]/ZIP Co de Phone Number [address] [address], [facility] [phone] * LIPASE BLOOD (05/12/2023 8:10 AM [employer]) Pathologist [facility] Lipase 12 8 - 78 U/L 05/12/2023 9:00 AM [employer] [facility] Blood BLOOD SPECIMEN / Unknown Venipuncture / Unknown 05/12/2023 8:10 AM [employer] 05/12/2023 8:26 AM [employer] Narrative [facility] - 05/12/2023 9:00 AM [employer] Lipase results from the [employer] Alinity analyzer may not be comparable with other methodologies. Wayne Xavier MD LAB - CHEMISTRY BOBBI OTERO [address] [address], [facility] [phone] * CARDIAC RHYTHM STRIP ORDER (2015 10:31 PM [employer]) Narrative 2015 10:31 PM [employer] Ordered by an unspecified provider. Scanned Document CARDIAC SERVICES ORD ERABLES * XR SPINE 1 VIEW (05/04/2015 11:38 AM [employer]) Narrative [facility] - 05/07/2015 8:34 AM [employer] No Dictation. Jr Smith MD DIAGNOSTIC IMAGING O RDERASU Performing Organization Address City/[facility]/ZIP Co de Phone Number [facility] [address] [place] [address] * HCG URINE QUALITATIVE - POINT OF CARE (IP) (05/04/2015 9:36 AM [employer]) HCG Qual Urine Negative Negative [facility] POCT TESTING QC Verified Yes Yes [facility] POC T TESTING Urine specimen (specimen) URINE / Unknown 05/04/2015 9:36 AM [employer] Aron Torres MD LAB - POINT OF CAR E ORDERABLES Performing Organization Address [facility] Co de Phone Number [facility] POCT TESTING [address] [place] [address] * RAD OUTSIDE IMG IMPORT (04/29/2015 2:17 PM [employer]) Anatomical Region Laterality Modality Radiographic Saige ging Narrative 05/05/2015 10:14 AM [employer] OUTSIDE IMAGES SUCCESSFULLY IMPORTED Jr Smith MD [...] - 7.40 pH 07/14/2013 8:[address] [facility] pCO2 Cord Venous POCT 48(H) 35 - 45 mmHg 07/14/2013 8:[address] [facility] pO2 Cord Venous POCT 15(L) 22 - 33 mmHg 07/14/2013 8:[address] [facility] HCO3 Cord Arterial POCT 20(L) 22 - 24 mmol/L 07/14/2013 8:[address] [facility] BE Cord Venous POCT Calc -8(L) -6 - 2 mmol/L 07/14/2013 8:[address] [facility] TCO2 Cord Venous POCT 22 22 - 30 mmol/L 07/14/2013 8:41 AM [facility] O2 Saturation % Cord Venous Calc POCT 14 % 07/14/2013 8:[address] [facility] Site CORD ARACELI 07/14/2013 8:41 AM [facility] Sample iSTAT CORD V 07/14/2013 8:41 AM [facility] Blood CORD BLOOD SPECIMEN / Unknown 07/14/2013 8:28 AM CDT 07/14/2013 8:41 AM CDT Fortino Rosales MD LAB - POINT OF CARE ORDERABLES Performing Organization Address City/State/[facility] Co de Phone Number [facility] [address] [place] [address] * (ABNORMAL) BLOOD GASES CORD ART (ISTAT) (07/14/2013 8:25 AM CDT) pH Cord Arterial POCT 7.22 7.20 - 7.34 pH 07/14/2013 9:56 AM [facility] pCO2 Cord Arterial POCT 52.3 45 - 55 mmHg 07/14/2013 9:56 AM [facility] pO2 Cord Arterial POCT 9(L) 12 - 25 mmHg 07/14/2013 9:56 AM [facility] HCO3 Cord Arterial POCT 21.5 15 - 29 mmol/L 07/14/2013 9:[address] [facility] BE Cord Arterial POCT -7(L) -2.9 - 8.3 mmol/L 07/14/2013 9:56 AM [facility] TCO2 Cord Arterial POCT 23 mmol/L 07/14/2013 9:56 AM [facility] O2 Saturation Cord Art % Calc POCT 6 % 07/14/2013 9:[address] [facility] Site CORD ART 07/14/2013 9:[address] [facility] Sample iSTAT CORD A 07/14/2013 9:[address] [facility] Blood CORD BLOOD SPECIMEN / Unknown 07/14/2013 8:25 AM CDT 07/14/2013 9:56 AM CDT Fortino Rosales MD LAB - POINT OF CARE ORDERABLES [facility] [address] [place] [address] * GROSS + MICRO EXAM (STL) (07/14/2013 8:17 AM CDT) Case Report Surgical Pathology Report Case: [id number] Authorizing Provider: Fortino Rosales MD Ordering Provider: Fortino Rosales MD Ordering Location: [address] ANTEPARTUM/MOTHER Collected: 07/14/2013 8:17 AM BABY Pathologist: Keven Em MD Received: 07/15/2013 10:38 AM Signed Out: 07/16/2013 2:52 PM (Final) Specimen: Placenta 07/16/2013 2:[address] [facility] Final Diagnosis 1. Placenta, delivery: -- Third trimester placenta -- Three vessel umbilical cord -- Unremarkable membranes MC/scs 07/16/2013 2:52 PM [facility] Gross Description Submitted fixed in formalin [...] placental parenchyma. The placenta weighs 300 grams. [employer] sections from the placental disc are submitted in cassettes A1 and A2. [employer] sections from the umbilical cord and membranes are submitted in cassette A3. PW/na 07/16/2013 2:[address] [facility] Microscopic Description Sections of the umbilical cord show three vessels with no evidence of vasculitis or funisitis. Sections of the membranes show unremarkable histology and are free of inflammation. Meconium is not identified. Sections of the placental disc show mature chorionic villi with no evidence of hemorrhage or infarction. MC/devika 07/16/2013 2:[address] [facility] Synoptic Report 07/16/2013 2:[address] [facility] Pathology/Cytolo gy ENTIRE PLACENTA / Unknown 07/14/2013 8:17 AM CDT 07/15/2013 10:38 AM CDT Fortino Rosales MD LAB - PATHOLOGY/CYTO LOGY ORDERABLES Performing Organization Address City/State/[facility] Co de Phone Number [facility] [address] [place] [address] * PREPARE PLATELET PHERESIS UNIT(S) (07/14/2013 7:42 AM CDT) Only the most recent of2 resultswithin the time period is included. Unit Donor # [id number] 07/14/2013 7:[address] [facility] Product Code E3046 07/14/2013 7:[address] [facility] ABO Donor Type AB 07/14/2013 7:[address] [facility] Rh Type Unit POS 07/14/2013 7:[address] [facility] Unit Status Available XM 07/14/2013 7:[address] [facility] Unit Description [id number] PLT, IRR, LR, APH, ACD-A 07/14/2013 7:[address] [facility] Miscellaneous samples (specimen) BLOOD SPECIMEN / Unknown 07/14/2013 7:42 AM CDT 07/14/2013 7:48 AM CDT Melissa Ahumada MD LAB - BLOOD BA NK ORDERABLES [facility] * (ABNORMAL) COAGULATION PANEL W D-DIMER (07/14/2013 6:07 AM CDT) PT <9.2(L) 9.4 - 11.4 sec 07/14/2013 6:[address] [facility] INR 0.86(L) 0.89 - 1.07 07/14/2013 6:[address] [facility] PTT 25.2 24.0 - 33.0 sec 07/14/2013 6:[address] [facility] Fibrinogen 445 150 - 450 mg/dL 07/14/2013 6:[address] [facility] D-Dimer 9.83(H) 0 - 0.5 mg/L FEU 07/14/2013 6:[address] [facility] Platelet Count 48(L) 153 - 416 x10^9/L 07/14/2013 6:[address] [facility] Blood BLOOD SPECIMEN / Unknown Venipuncture / Unknown 07/14/2013 6:07 AM CDT 07/14/2013 6:[address] [facility] - 07/14/2013 6:51 AM CDT Elevated [...] - COAGULATION O RDERABLES Performing Organization Address [facility] Co de Phone Number [facility] [address] [place] [phone] * (ABNORMAL) GLUCOSE - POINT OF CARE (07/14/2013 5:02 AM CDT) Only the most recent of10 resultswithin the time period is included. Pathologist [facility] Glucose WB/POC 121(H) 70 - 106 mg/dL 07/14/2013 1:[address] [facility] Blood BLOOD SPECIMEN / Unknown 07/14/2013 5:02 AM CDT 07/14/2013 1:59 PM CDT Fortino Rosales MD LAB - POINT OF CARE ORDERABLES Performing Organization Address [facility] de Phone Number [facility] [address] [place] [phone] * (ABNORMAL) SLIDE SCAN HEMATOLOGY (07/13/2013 11:59 PM CDT) Only the most recent of2 resultswithin the time period is included. Pathologist [facility] Platelet Estimation Decreased (A) Normal, Adequate platelets 07/14/2013 1:[address] [facility] Blood BLOOD SPECIMEN / Unknown 07/13/2013 11:59 PM CDT 07/14/2013 12:05 AM CDT Lisa Null MD LAB - HEMATOLOGY OR DERABLES Performing Organization Address [facility] Co de Phone Number [facility] [address] [place] [phone] * (ABNORMAL) CBC W/O DIFFERENTIAL (07/13/2013 11:14 PM CDT) Pathologist [facility] WBC 14.9(H) 4.4 - 10.7 x10^9/L 07/14/2013 12:[address] [facility] Comment: RBC 4.27 3.80 - 5.20 x10^12/L 07/14/2013 12:[address] [facility] Hemoglobin 13.7 12.0 - 15.6 gm/dL 07/14/2013 12:[address] [facility] Hematocrit 37.8 35.9 - 45.5 % 07/14/2013 12:[address] [facility] MCV 88.5 80.7 - 98.3 fl 07/14/2013 12:[address] [facility] MCH 32.1 26.7 - 34.0 pg 07/14/2013 12:[address] [facility] MCHC 36.2(H) 30.8 - 35.9 gm/dL 07/14/2013 12:[address] [facility] Platelet Count 74(L) 153 - 416 x10^9/L 07/14/2013 12:[address] [facility] RDW-CV 13.2 12.1 - 14.9 % 07/14/2013 12:[address] [facility] Blood BLOOD SPECIMEN / Unknown 07/13/2013 11:14 PM CDT 07/13/2013 11:26 PM CDT Melissa Ahumada MD LAB - HEMATOLO GY ORDERABLES [facility] [address] [place] [address] * BLOOD TYPE VERIFICATION (07/13/2013 6:55 PM CDT) ABO O 07/13/2013 7:[address] [facility] Rh Type Positive 07/13/2013 7:[address] [facility] Miscellaneous samples (specimen) BLOOD SPECIMEN / Unknown Venipuncture / Unknown 07/13/2013 6:55 PM CDT 07/13/2013 7:02 PM CDT Fortino Rosales MD LAB - BLOOD BANK ORD ERABLES [facility] * (ABNORMAL) FIBRINOGEN ACTIVITY (07/13/2013 6:55 PM CDT) Fibrinogen 461(H) 150 - 450 mg/dL 07/13/2013 11:[address] [facility] Blood BLOOD SPECIMEN / Unknown Venipuncture / Unknown 07/13/2013 6:55 PM CDT 07/13/2013 7:02 PM CDT Melissa Ahumada MD LAB - COAGULAT ION ORDERABLES [facility] [address] [place] [id number] * PTT (07/13/2013 6:55 PM CDT) PTT 26.0 24.0 - 33.0 sec 07/13/2013 11:[address] [facility] Blood BLOOD SPECIMEN / Unknown Venipuncture / Unknown 07/13/2013 6:55 PM CDT 07/13/2013 7:02 PM CDT Melissa Ahumada MD LAB - COAGULAT ION ORDERABLES Performing Organization Address [facility] Co de Phone Number [facility] [address] [place] [address] * (ABNORMAL) PT-INR (07/13/2013 6:55 PM CDT) PT <9.2(L) 9.4 - 11.4 sec 07/13/2013 11:[address] [facility] INR <0.86(L) 0.89 - 1.07 07/13/2013 11:[address] [facility] Blood BLOOD SPECIMEN / Unknown Venipuncture / Unknown 07/13/2013 6:55 PM CDT 07/13/2013 7:[address] [facility] - 07/13/2013 11:25 PM CDT Conventional Anticoagulant Therapy INR Reference Ranges: 2.0-3.0 Intensive Anticoagulant Therapy INR Reference Ranges: 2.5-3.5 Melissa Ahumada MD LAB - COAGULAT ION ORDERABLES Performing Organization Address City/[facility]/ZIP Co de Phone Number [facility] [address] [place] [address] * TYPE + SCREEN PANEL (07/13/2013 5:26 PM CDT) ABO O 07/13/2013 6:[address] [facility] Rh Type Positive 07/13/2013 6:[address] [facility] Comment:History check perfor med. Retype required. Antibody Screen Negative 07/13/2013 6:[address] [facility] Miscellaneous samples (specimen) BLOOD SPECIMEN / Unknown Venipuncture / Unknown 07/13/2013 5:26 PM CDT 07/13/2013 5:35 PM CDT Keyla March MD LAB - BLOOD BA NK ORDERABLES [facility] * (ABNORMAL) DIFFERENTIAL MANUAL (07/13/2013 5:26 PM CDT) Pathologist [facility] WBC Auto 13.3 x10^9/L 07/13/2013 6:[address] [facility] Neutrophil % Manual 84(H) 44 - 73 % 07/13/2013 6:[address] [facility] Lymphocytes % Manual 11(L) 20 - 43 % 07/13/2013 6:[address] [facility] Monocytes % Manual 2(L) 5 - 13 % 07/13/2013 6:[address] [facility] Band % Manual 3 0 - 11 % 07/13/2013 6:[address] [facility] Cells Counted 100 # cells 07/13/2013 6:[address] [facility] Platelet Estimation Decreased( A) Normal, Adequate platelets 07/13/2013 6:[address] [facility] RBC Morphology Normal 07/13/2013 6:[address] [facility] WBC Morph Normal 07/13/2013 6:[address] [facility] Blood BLOOD SPECIMEN / Unknown 07/13/2013 5:26 PM CDT 07/13/2013 5:35 PM CDT Keyla March MD LAB - HEMATOLO GY ORDERABLES [facility] [address] [place] [address] * (ABNORMAL) URIC ACID BLOOD (07/13/2013 5:26 PM CDT) Uric Acid 8.1(H) 2.5 - 6.2 mg/dL 07/13/2013 7:[address] [facility] Comment: Blood BLOOD SPECIMEN / Unknown 07/13/2013 5:26 PM CDT 07/13/2013 7:28 PM CDT Tico Loo MD LAB - CHEMISTRY BOBBI OTERO [facility] [address] [place] [address] * GROSS + MICRO EXAM (03/25/2007 10:15 AM QUARRY SUPERVISOR DIMENSION STONE) Result CASE NUMBER [id number] [facility] PATH REPORT Comment: ORDERING PHYSICIAN KAYLIE [...] and interpreted by the attending (teaching) pathologist. Anime Designer CAMERON MALHOTRA RESIDENT IN PATHOLOG Silvestre Rowley M.D. PATHOLOGIST Ladarius Ugalde M.D. ELECTRONICALLY AMI Ladarius Ugalde MISCELLANEOUS SAMPLES / Unknown 03/25/2007 10:15 AM QUARRY SUPERVISOR [employer]IMENS[employer] STONE 03/25/2007 10:45 AM QUARRY SUPERVISOR [employer]IM[employer] STONE Historical Provider MD LAB - PATHOLOGY/C YTOLOGY ORDERABLES [facility] PATH REPORT Care Teams Safety And Occupational Health Manager Relationship Specialty Start Date End Date Cesar Laws MD PCP - General Family Medicine 04/16/15 Kiran Flowers, RN Casting Trucker 05/05/15
--- OUTSIDE RECORDS SUMMARY | 2024-06-27 19:58 | XMS_ITS | Encounter Summary ---
Author Organization [facility] Address [address] [place] [id number] Care Team Providers Care Wool Washing Machine Operator Name Role Phone Christie Moulton Primary Care Provider [phone] Encounter Details Date Type Department Care Team (Latest Contact Info) Description 02/19/2018 Abstract [facility] , Gladis Bravo MD Social [...] on filedocumented in this encounter Care Teams Wool Washing Machine Operator Relationship Specialty Start Date End Date Christie Moulton APNP [address] [place] [id number] PCP - General NURSE PRACTITIONER 01/28/18 documented as of this encounter
--- OUTSIDE RECORDS SUMMARY | 2024-06-27 19:58 | XMS_ITS | Clinical Summary ---
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 Anxiety 04/07/2015 Insomnia 04/07/2015 Lumbar disc herniation 03/25/2015 Spinal stenosis of lumbar region 03/25/2015 Chest wall pain 04/06/2014 Migraine headache 01/29/2014 Chronic pain 05/02/2013 Osteoarthritis of lumbar spine 05/02/2013 Sciatica 08/06/2012 Chronic low back pain 03/01/2012 Esophageal reflux 03/01/2012 Resolved Problems Problem Noted Date Diagnosed Date Resolved Date Normal ([facility]) 05/02/2013 1 06/06/2017 Encounter for preventive health [...] 03/06/2018, 12/27/2014, Additional history exists PHQ-2 (Physician [place]) 04/16/2024 06/22/2023 Annual Physical 06/21/2024 06/22/2023, 02/10/2022 [...] VE NON-REACT DIANA 02/10/2022 9:39 PM CDT [facility] Comment: ANTIBODIES TO HCV NOT DETECTED. DOES NOT EXCLUDE THE POSSIBILITY OF EXPOSURE TO HCV. 02/10/2022 12:0 3 PM CDT [facility] Final Resul t [facility] [address] [place] [address], [id number] from Last 3 Months or Most Recently Relevant to Health Maintenance Insurance [facility] Care Teams Mail Courier Relationship Specialty Start Date End Date Christie Moulton APNP [address] [place] [id number] PCP - General NURSE PRACTITIONER 01/28/18
--- OUTSIDE RECORDS SUMMARY | 2024-06-27 19:58 | XMS_ITS | Clinical Summary ---
Author Organization [facility] Address [address] [place] [address] Care Team Providers Care Air Purifier Servicer Name Role Phone Cesar Laws MD Primary Care Provide r Kiran Flowers RN Unavailable [phone] Source Comments [facility],non-owned Affiliates and Associated Physician Practices is amultiple site organization consisting of ambulatory clinics and hospital sitesin [place], [place], [place] and [place]. This disclosure is being madepursuant to the Care Everywhere program and may not contain all information available regarding this patient. Last updated 18.[facility] Allergies No known active allergies Medications * [...] Comments Blood Pressure 113/86 05/12/2023 12:15 PM [employer] MACHINE OPERATOR Pulse 100 05/12/2023 7:48 AM [employer] COT[employer] MACHINE OPERATOR Temperature 36.7 C (98 F) 05/12/2023 12:15 PM [employer] COT[employer] MACHINE OPERATOR Respiratory Rate 16 05/12/2023 12:15 PM KAPOK [employer] COTTON MACHINE OPERATOR Oxygen Saturation 99% 05/12/2023 12:15 PM [employer] MACHINE OPERATOR Inhaled Oxygen Concentration - - Weight 66.7 kg (147 lb) 05/12/2023 7:48 AM K[employer] COTTON MACHINE OPERATOR Height 157.5 cm (5' 2 ) 05/12/2023 7:48 AM K[employer] COTTON MACHINE OPERATOR Body Mass Index 26.89 05/12/2023 7:48 AM K[employer] C[employer] MACHINE OPERATOR Plan of Treatment Health Maintenance Due Date [...] this topic Medical Devices Implanted Type Area Garage Door Installer Device Identifier Shelf Expiration Date Model / Serial / Lot Wax Bone Implanted:Qty: 1 on 05/04/2015 by Jr Smith MD at [facility] Right: Spine Lumbar [employer] 07/16/2019 [id number] / / [id number] Advance Directives * Full Code (Latest Code Status on File) Date Activated Date Inactivated Comments 05/04/2015 3:51 PM 05/05/2015 1:50 PM * Full Code Date Activated Date Inactivated Comments 07/14/2013 9:17 AM 07/18/2013 5:15 PM * Full Code Date Activated Date Inactivated Comments 07/13/2013 4:03 PM 07/14/2013 9:17 AM Care Teams Air Purifier Servicer Relationship Specialty Start Date End Date Cesar Laws MD PCP - General Family Medicine 04/16/15 Kiran Flowers, RN Head Grinder 05/05/15
--- OUTSIDE RECORDS SUMMARY | 2024-06-27 19:58 | XMS_ITS | Referral Summary ---
Author Organization [facility] Address [address] [place] [address] Care Team Providers Care Advertising Assistant Name Role Phone Cesar Laws MD Primary Care Provide r Kiran Flowers RN Unavailable [phone] Source Comments [facility],non-owned Affiliates and Associated Physician Practices is amultiple site organization consisting of ambulatory clinics and hospital sitesin [place], [place], [place] and [place]. This disclosure is being madepursuant to the Care Everywhere program and may not contain all information available regarding this patient. Last updated 18.[facility] Allergies No known active allergies Medications * [...] Comments Blood Pressure 113/86 05/12/2023 12:15 PM BACK TENDER FOURDRINIER Pulse 100 05/12/2023 7:48 AM BACK TENDER FOURDRINIER Temperature 36.7 C (98 F) 05/12/2023 12:15 PM BACK TENDER FOURDRINIER Respiratory Rate 16 05/12/2023 12:15 PM BACK TENDER FOURDRINIER Oxygen Saturation 99% 05/12/2023 12:15 PM BACK TENDER FOURDRINIER Inhaled Oxygen Concentration - - Weight 66.7 kg (147 lb) 05/12/2023 7:48 AM BACK TENDER FOURDRINIER Height 157.5 cm (5' 2 ) 05/12/2023 7:48 AM BACK TENDER FOURDRINIER Body Mass Index 26.89 05/12/2023 7:48 AM BACK TENDER FOURDRINIER Functional Status Functional Status Response Date of [...] on file Medical Devices Implanted Type Area Bobbin Winder Device Identifier Shelf Expiration Date Model / Serial / Lot Wax Bone Implanted:Qty: 1 on 05/04/2015 by Jr Smith MD at [facility] Right: Spine Lumbar [employer] 07/16/2019 [id number] / / [id number] Advance Directives * Full Code (Latest Code Status on File) Date Activated Date Inactivated Comments 05/04/2015 3:51 PM 05/05/2015 1:50 PM * Full Code Date Activated Date Inactivated Comments 07/14/2013 9:17 AM 07/18/2013 5:15 PM * Full Code Date Activated Date Inactivated Comments 07/13/2013 4:03 PM 07/14/2013 9:17 AM Care Teams Advertising Assistant Relationship Specialty Start Date End Date Cesar Laws MD PCP - General Family Medicine 04/16/15 Kiran Flowers, RN Soloist Dancer 05/05/15
== END 2024-06-27 19:59 | disposition left against medical advice (07) ==
LOC: ANHED 19:56
PROVIDERS: Emergency Provider Emergency Medicine; PCP Registered Nurse
DX: S19.9XXA Unspecified injury of neck, initial encounter (principal); V43.92XA Unspecified car occupant injured in collision with other type car in traffic accident, initial encounter
CPT/HCPCS: 99199; L0140

== ENCOUNTER 2024-06-28 10:14 | Emergency (ER) | payer OTHER, BC, SELFPAY ==
--- NOTE | ~2024-06-28 | XR_ITS ---
Left Shoulder Technique: AP and scapular Y views were obtained. Clinical History: Pain Findings: No fracture or dislocation is seen. Osseous alignment is anatomic. The glenohumeral and acr omioclavicular joint spaces are preserved. Soft tissues are unremarkable. Impression: Unremarkable left shoulder radiographs. Reviewed, dictated and finalized at [facility]. Impression: Unremarkable left shoulder radiographs.
--- NOTE | ~2024-06-28 | XR_ITS ---
Cervical Spine: AP, lateral, open-mouth views Clinical History: Pain Findings: The normal lordotic curve is maintained. The vertebral bodies and posterior elements appea r intact. The intervertebral disc spaces are well maintained. Pre-vertebral soft tissues are unremar kable. Impression: No significant abnormality is seen. Reviewed, dictated and finalized at [facility]. Impression: No significant abnormality is seen.
[2024-06-28 10:26] VITALS: BP 133/72; PULSE 84; RESP 19; TEMP 37; O2SAT 99
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
== END 2024-06-28 11:45 | disposition home or self-care (01) ==
PROVIDERS: Emergency Provider Nurse Practitioner Family; PCP Registered Nurse
DX: S16.1XXA Strain of muscle, fascia and tendon at neck level, initial encounter (principal); S46.912A Strain of unspecified muscle, fascia and tendon at shoulder and upper arm level, left arm, initial encounter; V43.52XA Car driver injured in collision with other type car in traffic accident, initial encounter; K21.9 Gastro-esophageal reflux disease without esophagitis; F41.9 Anxiety disorder, unspecified
CPT/HCPCS: 72040; 73030; 99214; G0463